=== PATIENT | female | born 1980 | race Caucasian/White ===

== ENCOUNTER 2017-12-06 18:41 | Emergency (ER) | payer BC, MEDICAID ==
[~2017-12-06] VITALS: Ht 177.8 cm; Wt 54.5 kg
[~2017-12-06 18:41] MED LIST: NO HOME MEDS
[2017-12-06] MEDS ORDERED: normal saline 1000ML IV soln IVB ONE (19:40)
[2017-12-06] MEDS ORDERED: ondansetron/PF 4mg/2ml inj IV ONE (19:40)
[2017-12-06 19:51] LABS: BASOPHILS # (AUTO) 0.1 X10'3 (0-0.2); BASOPHILS % (AUTO) 1.9 % (0-1); EOSINOPHILS % (AUTO) 0.8 % (0-6); HEMATOCRIT 40.2 % (35.0-45.0); HEMOGLOBIN 13.8 g/dl (12.0-16.0); LYMPHOCYTES # (AUTO) 1.2 X10'3 (1.1-4.8); LYMPHOCYTES % (AUTO) 21.4 % (21-51); MEAN CORPUSCULAR HEMOGLOBIN 32.1 PG (27.0-31.0); MEAN CORPUSCULAR HGB CONC 34.3 % (33.0-36.5); MEAN CORPUSCULAR VOLUME 93.5 FL (78-98); MEAN PLATELET VOLUME 9.2 FL (7.4-10.4); MONOCYTES # (AUTO) 0.5 X10'3 (0-0.9); MONOCYTES % (AUTO) 8.4 % (2-12); NEUTROPHILS # (AUTO) 3.9 X10'3 (1.8-7.7); NEUTROPHILS % (AUTO) 67.5 % (42-75); PLATELET COUNT 171 X10'3 (140-440); RED BLOOD COUNT 4.29 X10'6 (4.20-5.60); RED CELL DISTRIBUTION WIDTH 13.4 % (11.5-14.5); WHITE BLOOD COUNT 5.7 X10'3 (4.5-11.0)
[2017-12-06 20:05] LABS: ALANINE AMINOTRANSFERASE 24 U/L (12-78); ALBUMIN 3.9 G/DL (3.4-5.0); ALBUMIN/GLOBULIN RATIO 1.3 (1.1-1.5); ALKALINE PHOSPHATASE 36 IU/L (46-116); ANION GAP 6 (8-16); ASPARTATE AMINO TRANSFERASE 12 U/L (10-37); BILIRUBIN,TOTAL 0.2 MG/DL (0.1-1.0); BLOOD UREA NITROGEN 13 MG/DL (7-18); BUN/CREATININE RATIO 16.3 (6.6-38.0); CALCIUM 8.7 MG/DL (8.5-10.1); CHLORIDE 108 MMOL/L (99-107); ETHANOL 0.085 GM/DL (0.0-0.010); GLUCOSE 92 MG/DL (70-104); POTASSIUM 3.8 MMOL/L (3.5-5.1); SODIUM 143 MMOL/L (135-145); TOTAL CARBON DIOXIDE 28.6 MMOL/L (24-32); eGFR 81 ML/MIN
[2017-12-06] MEDS ORDERED: chlordiazePOXIDE 25mg capsule PO ONE (20:35)
[2017-12-06] MEDS ORDERED: gabapentin 300mg capsule PO ONE (20:40)
[2017-12-06] MEDS ORDERED: gabapentin 400mg capsule PO ONE (20:40)
[2017-12-06] MEDS ORDERED: GABA-532 PO (20:43)
[2017-12-06 20:59] VITALS: BP 111/79
== END 2017-12-06 21:03 | disposition home or self-care (01) ==
LOC: ER 18:41
DX: F10.20 Alcohol dependence, uncomplicated (principal); F31.9 Bipolar disorder, unspecified; F41.9 Anxiety disorder, unspecified; Z56.0 Unemployment, unspecified
CPT/HCPCS: 36415; 80053; 80320; 85025; 96361; 96374; 99284; J2405; J7030

== ENCOUNTER 2021-04-22 11:40 | Emergency (ER) | payer MEDICAID ==
[~2021-04-22] VITALS: Ht 177.8 cm; Wt 63.6 kg
[~2021-04-22 11:40] MED LIST changes: +GABA-532 PO
[2021-04-22 12:41] LABS: COLOR,URINE YELLOW (Yellow); GLUCOSE, URINE NEGATIVE (Neg); KETONES,URINE TRACE mg/dl (Neg); LEUKOCYTE ESTERASE ,URINE NEGATIVE (Neg); NITRITES, URINE NEGATIVE (Neg); OCCULT BLOOD,URINE NEGATIVE (Neg); PROTEIN,URINE NEGATIVE (Neg); UROBILINOGEN,URINE 0.2 E.U/dL (0.2-1.0)
[2021-04-22 12:45] LABS: UA COLLECTION TYPE CLN CATCH MIDSTREAM; URINE HCG NEGATIVE (NEG)
[2021-04-22 12:46] LABS: BACTERIA,URINE 1+ /HPF (Neg); CLARITY,URINE SLIGHTLY CLOUDY (Clear); RBC,URINE NONE SEEN /HPF (0-2); SQUAMOUS EPITHELIAL CELL,UR MANY /LPF (FEW); WBC,URINE 0-4 /HPF (0-4)
--- NOTE | 2021-04-22 12:50 | NUR ---
ZENON MOTHER [phone]
[2021-04-22 12:52] LABS: URINE AMPHETAMINE SCREEN NEGATIVE (Neg); URINE BARBITUATE SCREEN NEGATIVE (Neg); URINE BENZODIAZEPINES SCREEN NEGATIVE (Neg); URINE CANNABINOID SCREEN NEGATIVE (Neg); URINE COCAINE SCREEN NEGATIVE (Neg); URINE METHADONE SCREEN NEGATIVE (Neg); URINE OPIATE SCREEN NEGATIVE (Neg); URINE PHENCYCLIDINE SCREEN NEGATIVE (Neg)
[2021-04-22 13:05] LABS: BASOPHILS % (AUTO) 0.7 % (0-1); EOSINOPHILS % (AUTO) 0 % (0-6); HEMATOCRIT 40.7 % (35.0-45.0); LYMPHOCYTES # (AUTO) 0.9 X10'3 (1.1-4.8); MEAN CORPUSCULAR HEMOGLOBIN 31.3 PG (27.0-31.0); MEAN CORPUSCULAR HGB CONC 34.4 g/dL (33.0-36.5); MEAN CORPUSCULAR VOLUME 90.9 FL (78-98); MEAN PLATELET VOLUME 9.4 FL (7.4-10.4); MONOCYTES # (AUTO) 0.4 X10'3 (0-0.9); NEUTROPHILS # (AUTO) 4.7 X10'3 (1.8-7.7); NEUTROPHILS % (AUTO) 77.3 % (42-75); PLATELET COUNT 201 X10'3 (140-440); RED BLOOD COUNT 4.48 X10'6 (4.20-5.60); RED CELL DISTRIBUTION WIDTH 12.6 % (11.5-14.5)
[2021-04-22 13:22] LABS: ALANINE AMINOTRANSFERASE 34 U/L (12-78); ALBUMIN 4.6 G/DL (3.4-5.0); ALBUMIN/GLOBULIN RATIO 1.4 (1.1-1.5); ALKALINE PHOSPHATASE 37 IU/L (46-116); ANION GAP 12 (8-16); ASPARTATE AMINO TRANSFERASE 25 U/L (10-37); BILIRUBIN,TOTAL 0.3 MG/DL (0.1-1.0); BLOOD UREA NITROGEN 8 MG/DL (7-18); BUN/CREATININE RATIO 10.5 (6.6-38.0); CALCIUM 9.1 MG/DL (8.5-10.1); CHLORIDE 102 MMOL/L (99-107); CREATININE 0.76 MG/DL (0.40-0.90); ETHANOL 0.063 GM/DL (0.0-0.010); GLUCOSE 92 MG/DL (70-104); POTASSIUM 4.2 MMOL/L (3.5-5.1); SODIUM 138 MMOL/L (135-145); TOTAL CARBON DIOXIDE 24.3 MMOL/L (24-32); TOTAL PROTEIN 7.9 G/DL (6.4-8.2); eGFR 84 ML/MIN
[2021-04-22] MEDS ORDERED: LORazepam 1 MG tablet PO ONE (13:45)
[2021-04-22 13:50] LABS: PLATELET ESTIMATE NORMAL; TOTAL CELLS COUNTED 100
--- NOTE | 2021-04-22 14:25 | NUR ---
Patient tearful with mother and father on the phone. After a few minutes RN had patient get off because patient was getting more and more upset. Patient told RN that patient did not like the [place] at all. States it made her feel like she was going crazy. Patient states she has been dealing with Bipolar on her own for a long time and she (and her family) just can't take it anymore. She has been very depressed. RN reassured patient that she was going to get help. RN did explain the process of [facility] evaluating her 5150. Patient verbalized understanding.
--- NOTE | 2021-04-22 16:00 | NUR ---
Laney QUEZDAA, evaluating patient. Patient is calm and cooperative. Continue to monitor.
[2021-04-22] MEDS ORDERED: quetiapine 100mg tablet PO ONE (16:15)
[2021-04-22] MEDS ORDERED: LORazepam 1 MG tablet PO PRN (16:20)
[2021-04-22] MEDS: gabapentin 100mg capsule PO SCH ×2 (17:37→20:37)
--- NOTE | 2021-04-22 20:00 | NUR ---
The patient has been resting on her bed. She has been very cooperative and pleasant during the evening assessment. She currently denies thoughts of wanting to harm herself or anyone else. SHe denies psychotic symptoms. She stated that recently her mood as been "horrible" and added, "I'm constantly fighting to keep my self going...everything is a da silva" She admits to labile moods prior to coming to the ER.
--- NOTE | 2021-04-22 20:59 | NUR ---
Nurse to nurse with Leticia at [facility], [place].
--- NOTE | 2021-04-22 22:20 | NUR ---
The patient has been accepted at [facility]. [facility] will pickling grader at around 10am. Accepting MD is Dr. Lynn
--- NOTE | 2021-04-22 22:23 | NUR ---
THe patient appears to be sleeping
--- NOTE | 2021-04-22 23:45 | NUR ---
The patient is up to the bathroom briefly then right back to bed.
--- NOTE | 2021-04-23 01:14 | NUR ---
THe patient appears to be sleeping
--- NOTE | 2021-04-23 03:03 | NUR ---
The patient appears to be sleeping
--- NOTE | 2021-04-23 04:59 | NUR ---
The patient appeared to have slept well during the night
[2021-04-23 05:46] VITALS: BP 115/64
[2021-04-23] MEDS: gabapentin 100mg capsule PO SCH (08:33)
--- NOTE | 2021-04-23 10:20 | NUR ---
Pt given clothes to change into. Pt has been accepted to [facility] by Dr. Lynn. [facility] here to transport patient. Original 5150 given to [employer] driver. Pt left in stable condition and rest of belongings given to [employer]v driver.
== END 2021-04-23 10:36 ==
LOC: ER 11:41
DX: F10.129 Alcohol abuse with intoxication, unspecified (principal); Z20.822 Contact with and (suspected) exposure to COVID-19; F31.9 Bipolar disorder, unspecified; F41.9 Anxiety disorder, unspecified; F43.10 Post-traumatic stress disorder, unspecified; Z59.00 Homelessness unspecified; Z72.89 Other problems related to lifestyle; Z79.899 Other long term (current) drug therapy; Y90.8 Blood alcohol level of 240 mg/100 ml or more
CPT/HCPCS: 36415; 80053; 80305; 80320; 81001; 81025; 85007; 85025; 87635; 99285; C9803

== ENCOUNTER 2022-05-31 16:46 | Emergency (ER) | payer BC, MEDICAID ==
[~2022-05-31] VITALS: Ht 175.3 cm; Wt 63.6 kg
[2022-05-31 17:22] VITALS: BP 133/82
[2022-05-31] MEDS ORDERED: aripiprazole 5mg tablet PO STA (20:02)
[2022-05-31] MEDS ORDERED: ARIP10TA15 PO (20:08)
[2022-05-31] MEDS ORDERED: aripiprazole 400mg suspension ER syringe IM ONE (20:30)
== END 2022-05-31 20:44 | disposition home or self-care (01) ==
LOC: ER 16:47
DX: F20.9 Schizophrenia, unspecified (principal); F10.10 Alcohol abuse, uncomplicated; F41.9 Anxiety disorder, unspecified; F31.9 Bipolar disorder, unspecified; Z56.0 Unemployment, unspecified; Z79.899 Other long term (current) drug therapy; Y90.9 Presence of alcohol in blood, level not specified
CPT/HCPCS: 96372; 99283

== ENCOUNTER 2024-08-25 07:33 | Inpatient (IN) | payer BC, MEDICAID ==
[~2024-08-25] VITALS: Ht 175.3 cm; Wt 64.5 kg
[~2024-08-25 07:33] MED LIST changes: +ARIP10TA15 PO
--- NOTE | 2024-08-25 08:25 | Physician Documentation ---
History of Present Illness ~ Chief Complaint: Mental Health Eval Stated Complaint: PSYCH/ETOH Time Seen by MD: 07:55 OK to notify your PCP?: Yes Primary Medical Doctor: dr. espino Source: patient, RN/MD, RN notes reviewed, old records Mode of Arrival: POV Exam Limitations: no limitations HPI Patient comes into the ER stating that she was drinking earlier today. She drinks four bottles of wine a day. She has been off her psych medications for over a year. She was going into genetic research as to why she does not metabolize poisons in the environment both political and pharmaceutical. Additionally the patient states the cardiac scans are driving up the real estate market. Her has been boarded for trunk because he is a graphic design teacher and now he lost his job. She states they can not afford a house they live up in [place] she is tearful and here for evaluation and care. Medication Reconciliation Allergies: Coded Allergies: No Known Allergies (Unverified , 08/25/24) Discontinued Medications Aripiprazole (Aripiprazole), 0.5 TAB PO DAILY, (Reported) Discontinued Reason: patient no longer taking Aripiprazole* (Abilify*), 20 MG PO DAILY Discontinued Reason: patient no longer taking Gabapentin (Gabapentin), 1 CAP PO DIRECTED Discontinued Reason: patient no longer taking Home Med List (No Home Medications), (Reported) Discontinued Reason: patient no longer taking Past Medical History Past Medical History: Anxiety, Bipolar, Depression Past Surgical History: noncontributory Alcohol Use: Abuse Drug Use: none Lives with: Family Lives In: Home Occupation: unemployed Review of Systems All Other Systems at this time: Reviewed and Negative Physical Exam Vital Signs: RN Vital Signs have been reviewed: Yes, Temperature: 98.2, Source: Temporal, Heart Rate: 90, Respiratory Rate: 16, BP: 106/70, Pulse Oximetry: 95, Weight: 66.700 Oxygen Flow Rate: 0 Physical Exam General: The patient is well developed, well nourished, nontoxic appearing and is in no acute distress. Skin: [place], warm and dry with no rashes. HEENT: Head was normocephalic and atraumatic. Eyes - pupils equal, round, reactive to light and accommodation. Extraocular movements were intact. Conjunctivae were nonicteric. The mouth and oropharynx were clear with moist mucous membranes. Neck: Supple and nontender. There was no jugular venous distention, lymphadenopathy, thyromegaly or masses. Chest: Clear to auscultation bilaterally without wheezes, rales or rhonchi. No accessory muscle use. No dullness to percussion. Heart: Rate regular and rhythmic. S1, S2. No murmurs. Palpation of the chest wall was normal. No rubs or thrills. Abdomen: Soft, nontender and nondistended. Positive bowel sounds. No guarding or rebound. No hepatosplenomegaly or palpable masses. Extremities: No cyanosis, clubbing or edema. The patient moves all extremities. Pulses were equal and symmetric. Neurologic: Motor sensory grossly intact Psychologic: The patient was oriented to person, place and time. The patient demonstrated poor judgement and insight. Patient was tearful. Flat affect but also labile at times. Positive suicidal ideation Progress Progress Note 1122: Transfer orders for [facility]: At this time there is no evidence of an emergent medical condition that would preclude (admission/transfer) to a psychiatric unit via [facility] protocol for further psychiatric, as well as medical evaluation and treatment. At this time I have no reason to believe that transfer via [facility] protocol would have serious medical compromise in the patient's health. Results/Orders Reviewed/noted all lab results: Yes Results/Orders Orders - JESSICA GOLDMAN MD Med Rec (08/25/24 08:19) 1799.11 (08/25/24 08:19) Close Observation Level (08/25/24 08:19) Covid19 Binax Poc Result Entry (08/25/24 08:19) Substance Use Navigator (08/25/24 08:19) Doxepin Capsule (Sinequan Capsule) (08/25/24 21:00) Lurasidone Tablet (Latuda Tablet) (08/25/24 13:31) Completed Orders - JESSICA GOLDMAN MD Cbc/Diff (08/25/24 08:19) Hcg, Ur Ql (08/25/24 08:19) Drug Screen, Urine (08/25/24 08:19) Ethanol (08/25/24 08:19) TSH (08/25/24 08:19) BMP (08/25/24 08:19) Regular Diet (08/25/24 Lunch) Ua With Microscopic (08/25/24 10:26) Chlordiazepoxide Capsule (Librium Capsul (08/25/24 13:00) Vital Signs 08/25/24 08/25/24 08/25/24 08/25/24 07:36 08:49 19:40 19:56 Temp 98.2 98.1 Pulse 90 70 Resp 16 18 16 16 B/P (MAP) 106/70 109/74 (86) Pulse Ox 95 98 O2 Flow Rate 0 0 Laboratory Tests Test 08/25/24 08:30 08/25/24 09:55 08/25/24 10:26 SARS-CoV-2 Antigen (Rapid) Negative White Blood Count 5.2 Red Blood Count 3.78 L Hemoglobin 11.8 L Hematocrit 35.6 Mean Corpuscular Volume 94.2 Mean Corpuscular Hemoglobin 31.3 H Mean Corpuscular Hemoglobin Concent 33.2 Red Cell Distribution Width 14.0 Platelet Count 179 Mean Platelet Volume 8.8 Neutrophils (%) (Auto) 68.1 Lymphocytes (%) (Auto) 21.1 Monocytes (%) (Auto) 7.8 Eosinophils (%) (Auto) 1.9 Basophils (%) (Auto) 1.1 H Neutrophils # (Auto) 3.6 Lymphocytes # (Auto) 1.1 Monocytes # (Auto) 0.4 Eosinophils # (Auto) 0.1 Basophils # (Auto) 0.1 CBC Comment Sodium Level 142 Potassium Level 4.4 Chloride Level 108 H Carbon Dioxide Level 28.8 Anion Gap 5 L Blood Urea Nitrogen 12 Creatinine 0.76 Estimated GFR/1.73 m2 83 BUN/Creatinine Ratio 15.8 Glucose Level 84 Calcium Level 8.3 L Albumin 3.3 L Thyroid Stimulating Hormone (TSH) 1.51 Chemistry Comments Ethyl Alcohol Level 88 H Urine Specimen Description Cln catch midstream Urine Color Yellow Urine Clarity Clear Urine pH 6.5 Urine Specific [place] <=1.005 Urine Protein Negative Urine Glucose (UA) Negative Urine Ketones Negative Urine Occult Blood Moderate H Urine Nitrite Negative Urine Bilirubin Negative Urine Urobilinogen 0.2 Urine Leukocyte Esterase Negative Urine RBC 20-50 Urine WBC None seen Urine Squamous Epithelial Cells Few Urine Transitional Epithelial Cells Few Urine Bacteria Few Volume Urine Centrifuged 10 ml Urine HCG, Qualitative Negative Urine Comment Urine Opiates Screen Negative Urine Methadone Screen Negative Urine Fentanyl Screen Negative Urine Barbiturates Screen Negative Urine Phencyclidine Screen Negative Urine Amphetamines Screen Negative Urine Benzodiazepines Screen Positive H Urine Cocaine Screen Negative Urine Cannabinoids Screen Negative Drug Screen Comment Re-Evaluation Re-Evaluation : Re-Evaluation: Improved Progress Patient was seen and examined. Patient is given reassurance. Patient's laboratory work was obtained and was reassuring. Patient is medically cleared for mental health treatment. Medical Decision Making Additional info obtained from: old records Differential Dx:Considerations: Include: Alcohol abuse, Anxiety, Bipolar disorder, Conversion disorder, Depression, Encephaloathy, Homicidal, Panic disorder, Personality disorder, Schizophrenia, Substance abuse, Suicidal, Other Departure Disposition: 01 HOME / SELF CARE / HOMELESS Impression: Primary Impression: Suicidal ideation Referrals: NO PRIMARY CARE PROVIDER (PCP) Education Educated: Patient Educated regarding: diagnosis, need for follow up, other Signature Scribe Signature: No scribed Attestation: The note accurately reflects work and decisions made by me.Jessica Goldman MD 08/25/24 08:25 JESSICA GOLDMAN MD Aug 25, 2024 08:25
[2024-08-25] MEDS ORDERED: ARIP5TAB53 PO (08:54)
[2024-08-25 10:01] LABS: BASOPHILS # (AUTO) 0.1 X10'3 (0-0.2); BASOPHILS % (AUTO) 1.1 % (0-1); EOSINOPHILS # (AUTO) 0.1 X10'3 (0-0.9); EOSINOPHILS % (AUTO) 1.9 % (0-6); HEMATOCRIT 35.6 % (35.0-45.0); HEMOGLOBIN 11.8 g/dl (12.0-16.0); LYMPHOCYTES # (AUTO) 1.1 X10'3 (1.1-4.8); LYMPHOCYTES % (AUTO) 21.1 % (21-51); MEAN CORPUSCULAR HEMOGLOBIN 31.3 PG (27.0-31.0); MEAN CORPUSCULAR HGB CONC 33.2 g/dL (33.0-36.5); MEAN CORPUSCULAR VOLUME 94.2 FL (78-98); MEAN PLATELET VOLUME 8.8 FL (7.4-10.4); MONOCYTES # (AUTO) 0.4 X10'3 (0-0.9); MONOCYTES % (AUTO) 7.8 % (2-12); NEUTROPHILS # (AUTO) 3.6 X10'3 (1.8-7.7); NEUTROPHILS % (AUTO) 68.1 % (42-75); PLATELET COUNT 179 X10'3 (140-440); RED BLOOD COUNT 3.78 X10'6 (4.20-5.60); WHITE BLOOD COUNT 5.2 X10'3 (4.5-11.0)
[2024-08-25 10:25] LABS: ALBUMIN 3.3 G/DL (3.4-5.0); ANION GAP 5 (8-16); BLOOD UREA NITROGEN 12 MG/DL (7-18); BUN/CREATININE RATIO 15.8 (10.0-20.0); CALCIUM 8.3 MG/DL (8.5-10.1); CHLORIDE 108 MMOL/L (99-107); CREATININE 0.76 MG/DL (0.40-0.90); ETHANOL 88 MG/DL (<10); GLUCOSE 84 MG/DL (70-104); POTASSIUM 4.4 MMOL/L (3.5-5.1); SODIUM 142 MMOL/L (135-145); THYROID STIMULATING HORMONE 1.51 ulU/ml (0.34-4.50); TOTAL CARBON DIOXIDE 28.8 MMOL/L (24-32); eCRCL 99 ML/MIN; eGFR 83 ML/MIN
[2024-08-25 10:41] LABS: BILIRUBIN,URINE NEGATIVE (Neg); CLARITY,URINE CLEAR (Clear); COLOR,URINE YELLOW (Yellow); GLUCOSE, URINE NEGATIVE (Neg); KETONES,URINE NEGATIVE (Neg); LEUKOCYTE ESTERASE ,URINE NEGATIVE (Neg); NITRITES, URINE NEGATIVE (Neg); OCCULT BLOOD,URINE MODERATE (Neg); PH,URINE 6.5 (4.8-8.0); PROTEIN,URINE NEGATIVE (Neg); URINE HCG NEGATIVE (NEG); UROBILINOGEN,URINE 0.2 E.U/dL (0.2-1.0)
[2024-08-25 10:44] LABS: UA COLLECTION TYPE CLN CATCH MIDSTREAM
[2024-08-25 10:50] LABS: BACTERIA,URINE FEW /HPF (Neg); RBC,URINE 20-50 /HPF (0-2); SQUAMOUS EPITHELIAL CELL,UR FEW /LPF (FEW); TRANSITIONAL EPI CELLS,URINE FEW /HPF; WBC,URINE NONE SEEN /HPF (0-4)
[2024-08-25 10:54] LABS: URINE AMPHETAMINE SCREEN NEGATIVE (Neg); URINE BARBITUATE SCREEN NEGATIVE (Neg); URINE BENZODIAZEPINES SCREEN POSITIVE (Neg); URINE CANNABINOID SCREEN NEGATIVE (Neg); URINE COCAINE SCREEN NEGATIVE (Neg); URINE METHADONE SCREEN NEGATIVE (Neg); URINE OPIATE SCREEN NEGATIVE (Neg); URINE PHENCYCLIDINE SCREEN NEGATIVE (Neg)
[2024-08-25] MEDS ORDERED: lurasidone 60mg tablet PO SCH (13:00)
[2024-08-25] MEDS: chlordiazePOXIDE 25mg capsule PO ONE (13:23)
[2024-08-25] MEDS ORDERED: lurasidone 20mg tablet PO SCH (13:26)
[2024-08-25] MEDS: lurasidone 20mg tablet PO SCH (13:46)
[2024-08-25] MEDS ORDERED: NICOTINE POLACRILEX 2 MG LOZENGE BC PRN (21:35)
[2024-08-25] MEDS ORDERED: mag hydrox/Alum hydrox/simeth 30ml oral suspension PO PRN (21:35)
[2024-08-25] MEDS ORDERED: diphenhydrAMINE 25mg capsule PO PRN (21:35)
[2024-08-25] MEDS ORDERED: acetaminophen 325mg tablet PO PRN ×2 (21:35)
[2024-08-25] MEDS ORDERED: magnesium hydroxide 30ml (MOM) UD suspension PO PRN (21:35)
[2024-08-25 22:02] VITALS: RESP 16; O2SAT 98
[2024-08-25] MEDS: LORazepam 1 MG tablet PO PRN (23:03)
[2024-08-25] MEDS: doxepin 10mg capsule PO SCH (23:03)
[2024-08-25] MEDS: traZODone 50mg tablet PO PRN (23:03)
[2024-08-26] MEDS ORDERED: LURA20TA8 PO (01:30)
[2024-08-26] MEDS ORDERED: DOXE10CA3 PO (01:32)
[2024-08-26] MEDS ORDERED: LORA-269 PO (01:32)
[2024-08-26 07:00] VITALS: RESP 16; O2SAT 100
[2024-08-26] MEDS ORDERED: lurasidone 20mg tablet PO SCH (07:30)
[2024-08-26] MEDS: nicotine 21mg patch - 24 hr TD SCH (07:40)
[2024-08-26 08:00] VITALS: BP 98/56; PULSE 47; RESP 16; TEMP 98.1; O2SAT 100
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
[2024-08-26 14:28] LABS: HEMOGLOBIN A1C 4.7 % (4.5-6.2)
[2024-08-26 14:33] LABS: CHOL/HDL RATIO 2.2 (0.00-4.99); CHOLESTEROL 231 MG/DL (0-200); HDL CHOLESTEROL 106 MG/DL (35-60); LDL CHOLESTEROL 95 MG/DL (50-100); TRIGLYCERIDES 102 MG/DL (20-135)
[2024-08-26 18:34] VITALS: RESP 16
[2024-08-26 19:34] VITALS: BP 111/59; PULSE 61; RESP 16; TEMP 97.8; O2SAT 98
--- NOTE | 2024-08-26 19:41 | HISTORY AND PHYSICAL-Residence ---
History & Physical Providers to CC Resident Creating Document: DHAVAL CASTREJON, RES ~ History of Present Illness Reason for Admit\Complaint: Depression, alcohol use disorder. History of Present Illness 44 years old female patient came to the hospital with chief complaint binge drinking. In the emergency department it was evidenced that the patient is in danger to self after showing signs of anxiety, tearfulness, reports that she has been drinking multiple bottles of wine daily for years. Trans to remove with pressure speech. The patient is positive for benzodiazepine and alcohol. The patient is currently not in acute distress, denies any chest pain, shortness of breath, palpitations, urinary or intestinal symptoms. Stating that she was admitted to the hospital because of binge drinking alcohol and depression. Allergies: Coded Allergies: No Known Allergies (Unverified , 08/25/24) Home Medications Home Medications Active Reported Ativan (Lorazepam) 1 Mg Tablet 1 Tab PO Q6H PRN Doxepin HCl 10 Mg Capsule 1 Cap PO HS Latuda (Lurasidone HCl) 20 Mg Tablet 1 Tab PO DAILY Past Medical History Past Medical History Alcohol use disorder. Depression. Past Surgical History Surgical History Comment None Past Social History Smoking: Quit greater than 1 year Alcohol Use: Abuse Drug Use: Marijuana Lives with: Family Lives In: Home Occupation: unemployed ROS All Other Systems: Reviewed and Negative Exam Vitals: Vital Signs Date Time Temp Pulse Resp B/P (MAP) Pulse Ox O2 Delivery O2 Flow Rate FiO2 08/26/24 19:34 97.8 61 16 111/59 (76) 98 Room Air 08/25/24 19:40 0 Physical exam: General: Well alert, well oriented, not confused, not agitated, not in acute distress, well cooperated during the physical. HEENT: Conjunctive are pink, sclerae clear, no icterus, pupil is equal in both sides, reactive to light, no ear discharge, no pharyngeal erythema or an edema. Neck: Supple, no JVD, no lymphadenopathy and thyromegaly. Chest: Equal air entry on both lungs, no additional sounds no rhonchi no wheezing at the moment. Cardiovascular: S1-S2 regular sinus rhythm and, regular rate, no gallops, no rubs, no murmurs Abdomen: No visible peristalsis, Bowel sounds present on auscultation, soft, nontender, no guarding, no rigidity Extremities: No obvious deformities, no pitting edema bilaterally, capillary refill intact, peripheral pulsations are intact on both sides Central Nervous System: No focal neurological deficits, no motor or sensory weakness in all 4 extremities, could move all 4 extremities, 2+ deep tendon reflexes, negative Babinski. Musculoskeletal: No joint swelling, deformities, inflammations, and no scoliosis and back tenderness Skin: Warm and dry. Diagnostic Data Last Recorded Lab Results: 08/25/24 0955 08/25/24 0955 Additional Plan Assessment and plan: 44 years old female patient came to the hospital with signs of anxiety, depression. Schizoaffective disorder: Bipolar affective disorder: Alcohol abuse: Continue management as per psychiatrist. Disposition: Hospitalist team will continue to follow the patient. Continue management as per psychiatrist. Dhaval Hobbs Internal Medicine Resident [facility] Date of Service: Aug 26, 2024 Billing Provider: LINETTE RESENDIZ MD Common Visit Codes: [id number] INP/OBS CARE (HIGH) DHAVAL CASTREJON, RES Aug 26, 2024 19:41 LINETTE RESENDIZ MD Aug 26, 2024 21:48
[2024-08-26] MEDS: mirtazapine 15mg tablet PO SCH (19:51)
[2024-08-27 07:00] VITALS: RESP 15; O2SAT 100
[2024-08-27 08:00] VITALS: BP 111/56; PULSE 60; RESP 15; TEMP 98.4; O2SAT 100
--- NOTE | 2024-08-27 14:47 | PROGRESS NOTE ---
Progress Note Dictate Providers to CC ~ Central Line/PICC still needed: N\\A Antibiotic Ordered?: No MRSA Education MRSA Education Provided to pt: No Objective Vitals Vital Signs Date Time Temp Pulse Resp B/P (MAP) Pulse Ox O2 Delivery O2 Flow Rate FiO2 08/27/24 08:00 98.4 60 15 111/56 (74) 100 Room Air 08/25/24 19:40 0 Lab Results: 08/25/24 0955 08/25/24 0955 Problem\\Assessment\\Plan Problems/Diagnosis: (1) Schizoaffective disorder (2) Bipolar affective disorder (3) Alcohol abuse Psychiatrist's Progress Note Date of Service: Aug 27, 2024 Notes CHART REVIEW Michelle is a 44-year-old female placed on a 1799 by [facility] ED for danger to self after presenting to the ED showing signs of anxiety, tearfulness, reports she has been drinking multiple bottles of wine daily for years, tends to ramble with pressured speech. Report at [facility] ED is positive for benzodiazepine and alcohol. Cristobal reports awareness of self, surrounding, hospital location in the approximate date and time. And reports she is a resident of [facility] residing with her until one week ago when she moved to [facility] to live with her parents; Cristobal reports her is unable to "deal with me." Reports history of alcohol abuse, bipolar disorder, schizophrenia and PTSD. Last psychiatric hospital [facility] admission by self report was asked [facility] approximately one year ago. Liliane reports exhibiting impulse behaviors with recent examples that includes shaving off her hair in remains restless, pacing while in the ED. ASSESSMENT The patient was interviewed in observation room. The patient was actively resting in bed with eyes open. The patient endorses "I feel completely drugged out." That is what happens I cant function on them." "I am not on hardly anything and I feel completely drugged out." "It is making me worse staying in here." "i need to get home and get back to AA. Denies SI. Denies HI. Denies AVH. The patient is stable no acute distress noted. The patient is depressed, anxious (about being in here), and engaged during session. The patient seems to be minimizing her symptoms. Per staff report the patient is medication compliant. Per staff report no abnormal behaviors noted.Will continue daily assessment and adjusting treatment as needed. Closely monitor behavior and response to medication during hospitalization. Results Of any Diagn. Testing REVIEW OF LABS WBC 5.2 COVID NEGATIVE RBC 3.78 HEMOGLOBIN 11.8 HEMATOCRIT 35.6 PLATELETS 179 SODIUM 142 POTASSIUM 4.4 CHLORIDE 108 ANION GAP5 BUN 12 CREATININE 0.76 GLUCOSE 84 CALCIUM 8.3 ALBUMIN 3.3 TSH 1.51 ETHYL ALCOHOL LEVEL 88 URINALYSIS NEGATIVE URINE TOX SCREEN POSITIVE FOR BENZODIAZEPINES Appearnace: Other (TALL AVERAGE WEIGHT FEMALE.BALD HEAD.WEARING GREEN SCRUBS.) Speech: Other (CIRCUMSTANTIAL) Eye Contact: Other (INTERMITTENT) Motor Activity: Normal Affect: Constricted Mood: Depressed, Irritable Orientation Impairment: None Memory Impairment: None Attention: Normal Hallucinations: None Other: None Suicidality: None Homicidality: None Delusions: None Behavior: Agitated Insight: Poor Judgment: Poor Treatment Increase LATUDA 40MG PO DAILY TRAZODONE 50 MG P.O. Q.6 PRN ATIVAN 1 MG P.O. Q.6 PRN BENADRYL 50 MG P.O. Q.6 PRN THORAZINE 50 MG P.O. Q.6 PRN REMERON 7.5MG PO QHS Monitoring by Staff, Milieu, Group, and Individual counseling as needed -- According to the [place] Suicide Assessment the above named patient is on Q15 MINUTE CHECKS. [id number]-The patient does not have a good safety plan for discharge at this time. We are still titrating medications to an effective dose while maintaining a therapeutic environment to prevent decompensation and readmission. Total time spent 60 minutes on REVIEW OF Clinical notes [X ] RN notes [X] PCT documentation [X] SW notes Labs [ X] Medications [X] Care trends/care activity [X] Vitals [X] DISCUSSION WITH reducing system operator [X] Staff SW Treatment Team [X] Discharge UNSURE AT THIS TIME. DISCHARGE HOMELESS ONCE STABLE. CODING VISIT-PSYCHIATRY Date of Service: Aug 27, 2024 Billing Provider: ZAHIDA MONROE APRN Psych Common Visit Codes: [id number] INP/OBS CARE(Mod) ZAHIDA MONROE APRN Aug 27, 2024 14:47
[2024-08-27] MEDS ORDERED: lurasidone 20mg tablet PO SCH (17:00)
[2024-08-27] MEDS: lurasidone 20mg tablet PO SCH (17:19)
[2024-08-27 19:00] VITALS: RESP 16; O2SAT 99
[2024-08-27 20:48] VITALS: RESP 16; O2SAT 99
[2024-08-27 20:53] VITALS: BP 104/55; PULSE 66; RESP 16; TEMP 96.6; O2SAT 99
[2024-08-28 07:00] VITALS: RESP 16; O2SAT 98
[2024-08-28 08:00] VITALS: BP 91/51; PULSE 48; RESP 16; TEMP 97.5; O2SAT 98
--- NOTE | 2024-08-28 09:50 | DISCHARGE SUMMARY ---
Discharge Summary Providers to ~ Discharge Summary Hospital Course DATE OF ADMISSION: DATE OF DISCHARGE: Discharge Summary: CHART REVIEW Patient actively seen and examined on day of discharge 08/28/2024, by myself, LYNN Stallworth. The patient is interviewed in observation room. The patient endorses "I am doing Good." Denies SI. Denies HI. Denies AVH. Michelle was able to formulate a safety plan which includes going to the emergency room if symptoms return or worsen. Call [phone] or [phone] for immediate assistance if necessary. During his hospital stay, Michelle receive multidisciplinary treatment she adhered to his medication regimen and has been pleasant and cooperative. She denies any suicidal ideation (SI), homicidal ideation (HI), auditory/visual hallucination (HI). Staff has reported no behavioral issues, and the patient has been sleeping well, adequate food intake, with no mood or behavioral changes noted. The decision to discharge Michelle was made in consensus with the treatment team, including the hospice social worker, community relations officer, and smelter charger on duty. MENTAL STATUS EXAM APPEARANCE: APPROPRIATELY. DRESSED IN STREET CLOTHING. SPEECH: CIRCUMSTANTIAL EYE CONTACT: INTERMITTENT AFFECT: CONSTRICTED MOOD: "I AM DOING GOOD" ORIENTATION IMPAIRMENT: NONE MEMORY IMPAIRMENT: NONE ATTENTION: NORMAL HALLUCINATIONS: NONE SUICIDALITY: NONE HOMICIDALITY: NONE DELUSIONS: NONE BEHAVIOR: COOPERATIVE, PLEASANT JUDGMENT: FAIR, POOR INSIGHT: FAIR Continue Current Inpatient Psychotropic Regimen @ home Follow-Up with Psychiatric Provider Safety Plan Discussed DISCHARGE CONDITION: Her readiness for discharge is supported by his stable mental status, adherence to treatment, and proactive approach to managing his mental health. Denies SI. Denies HI. Denies A/V/H. The patient has been informed to continue follow-up care to ensure ongoing support and monitoring. Patient discharged to home. *Problems/Diagnosis: (1) Schizoaffective disorder Status: Acute (2) Bipolar affective disorder Status: Acute (3) Alcohol abuse Status: Acute CODING VISIT-PSYCHIATRY Date of Service: Aug 28, 2024 Billing Provider: ZAHIDA MONROE APRN Psych Common Visit Codes: [id number]/[id number] DISCH DAY >30min ZAHIDA MONROE APRN Aug 28, 2024 09:48
--- NOTE | 2024-08-28 11:08 | PROGRESS NOTE ---
Progress Note Dictate Providers to CC ~ Central Line/PICC still needed: N\\A Antibiotic Ordered?: No MRSA Education MRSA Education Provided to pt: No Objective Vitals Vital Signs Date Time Temp Pulse Resp B/P (MAP) Pulse Ox O2 Delivery O2 Flow Rate FiO2 08/28/24 08:00 97.5 48 16 91/51 (64) 98 Room Air 08/28/24 07:00 0.0 Lab Results: 08/25/24 0955 08/25/24 0955 Problem\\Assessment\\Plan Problems/Diagnosis: (1) Schizoaffective disorder (2) Bipolar affective disorder (3) Alcohol abuse Psychiatrist's Progress Note Date of Service: Aug 28, 2024 Notes CHART REVIEW Michelle is a 44-year-old female placed on a 1799 by S [facility] ED for danger to self after presenting to the ED showing signs of anxiety, tearfulness, reports she has been drinking multiple bottles of wine daily for years, tends to ramble with pressured speech. Report at [facility] ED is positive for benzodiazepine and alcohol. Cristobal reports awareness of self, surrounding, hospital location in the approximate date and time. And reports she is a resident of [facility] residing with her until one week ago when she moved to [facility] to live with her parents; Cristobal reports her is unable to "deal with me." Reports history of alcohol abuse, bipolar disorder, schizophrenia and PTSD. Last psychiatric hospital F admission by self report was asked [facility] approximately one year ago. Liliane reports exhibiting impulse behaviors with recent examples that includes shaving off her hair in remains restless, pacing while in the ED. ASSESSMENT The patient was interviewed in observation room. The patient was actively sitting up in bed. The patient endorses "I'm calm." " feel like there is no reason for me to stay here.' "I can go stay at AA." "Denies SI. Denies HI. Denies AVH. The patient is stable no acute distress noted. The patient is depressed, anxious (about being in here), and engaged during session. The patient seems to be minimizing her symptoms. Per staff report the patient is medication compliant. Per staff report no abnormal behaviors noted.Will continue daily assessment and adjusting treatment as needed. Closely monitor behavior and response to medication during hospitalization. I spoke with both parents of Michelle with Michelle consent and they are not willing to allow Michelle back until she is more stable. Stephane Velasquez' mother expressed that the patient was on Abilify injection in the past and it worked well. The patient agreed to the Abilify injection. Results Of any Diagn. Testing REVIEW OF LABS WBC 5.2 COVID NEGATIVE RBC 3.78 HEMOGLOBIN 11.8 HEMATOCRIT 35.6 PLATELETS 179 SODIUM 142 POTASSIUM 4.4 CHLORIDE 108 ANION GAP5 BUN 12 CREATININE 0.76 GLUCOSE 84 CALCIUM 8.3 ALBUMIN 3.3 TSH 1.51 ETHYL ALCOHOL LEVEL 88 URINALYSIS NEGATIVE URINE TOX SCREEN POSITIVE FOR BENZODIAZEPINES Appearnace: Other (APPROPRIATE. TALL AVERAGE WEIGHT FEMALE.BALD HEAD.WEARING GREEN SCRUBS.) Speech: Other (CIRCUMSTANTIAL) Eye Contact: Avoidant Motor Activity: Normal Affect: Labile Mood: Depressed Orientation Impairment: None Memory Impairment: None Attention: Normal Hallucinations: None Other: None Suicidality: None Homicidality: None Delusions: None Behavior: Agitated Insight: Poor Judgment: Poor Treatment Discontinue LATUDA 40MG PO DAILY ABILIFY 960MG IM X1-GIVEN ON 08/28/2024 TRAZODONE 50 MG P.O. Q.6 PRN ATIVAN 1 MG P.O. Q.6 PRN BENADRYL 50 MG P.O. Q.6 PRN THORAZINE 50 MG P.O. Q.6 PRN REMERON 7.5MG PO QHS Monitoring by Staff, Milieu, Group, and Individual counseling as needed -- According to the [place] Suicide Assessment the above named patient is on Q15 MINUTE CHECKS. [id number]-The patient does not have a good safety plan for discharge at this time. We are still titrating medications to an effective dose while maintaining a therapeutic environment to prevent decompensation and readmission. Total time spent 50 minutes on REVIEW OF Clinical notes [X ] RN notes [X] PCT documentation [X] SW notes Labs [ X] Medications [X] Care trends/care activity [X] Vitals [X] DISCUSSION WITH beauty operator apprentice [X] Staff SW Treatment Team [X] Discharge UNSURE AT THIS TIME. DISCHARGE HOMELESS ONCE STABLE. CODING VISIT-PSYCHIATRY Date of Service: Aug 28, 2024 Billing Provider: ZAHIDA MONROE APRN Psych Common Visit Codes: [id number] INP/OBS CARE(Mod) ZAHIDA MONROE APRN Aug 28, 2024 11:08
[2024-08-28] MEDS: ARIPIPRAZOLE 960 MG/3.2 ML IM ONE (13:07)
--- NOTE | 2024-08-28 18:14 | PROGRESS NOTE ---
Daily Progress Note Providers to CC ~ Antibiotic Timeout Antibiotic Ordered?: No Subjective Patient was seen in her room she looked very depressed she cooperated during physical examination. she is Hydrating and not missing her food Objective Vital Signs Date Time Temp Pulse Resp B/P (MAP) Pulse Ox O2 Delivery O2 Flow Rate FiO2 08/28/24 08:00 97.5 48 16 91/51 (64) 98 Room Air 08/28/24 07:00 0.0 Result Diagram: 08/25/24 0908/25/24 0955 General-patient not in any acute distress, awake , age-appropriate, appeared depressed HEENT-atraumatic normocephalic, neck supple without elevated JVD, no thyromegaly or carotid bruit. No lymphadenopathy bilaterally. Eyes-no icterus or pallor seen in eyes Chest-clear to auscultation bilaterally, breathing nonlabored no tachypnea, no wheezing, no crepitation, no crackles. Heart-S1-S2 normal, regular heart rate no murmur Abdomen bowel sounds positive on auscultation, soft nondistended nontender no guarding, no rigidity Skin no active skin rash Neurology-grossly intact, nonfocal awake cooperated during physical examination Extremity- no pedal edema able to move all 4 extremities Problem\Assessment\Plan 44 years old female patient came to the hospital with signs of anxiety, depression. Schizoaffective disorder: Bipolar affective disorder: Alcohol abuse: Continue management as per psychiatrist. Disposition: Hospitalist team will continue to follow the patient. Continue management as per psychiatrist. Date of Service: Aug 28, 2024 Billing Provider: DANDRE RODRIGUES MD Common Visit Codes: [id number] INP/OBS CARE(LOW) DANDRE RODRIGUES MD Aug 28, 2024 18:14
[2024-08-28 19:00] VITALS: RESP 15; O2SAT 100
[2024-08-28 20:00] VITALS: BP 105/65; PULSE 70; RESP 15; TEMP 97; O2SAT 100
[2024-08-29 07:00] VITALS: RESP 16; O2SAT 97
[2024-08-29 08:00] VITALS: BP 91/47; PULSE 60; RESP 16; TEMP 97.4; O2SAT 97
--- NOTE | 2024-08-29 14:51 | PROGRESS NOTE ---
Progress Note Dictate Providers to CC ~ Central Line/PICC still needed: N\\A Antibiotic Ordered?: No MRSA Education MRSA Education Provided to pt: No Objective Vitals Vital Signs Date Time Temp Pulse Resp B/P (MAP) Pulse Ox O2 Delivery O2 Flow Rate FiO2 08/29/24 08:00 97.4 60 16 91/47 (62) 97 08/29/24 07:00 Room Air 0.0 Lab Results: 08/25/24 0955 08/25/24 0955 Problem\\Assessment\\Plan Problems/Diagnosis: (1) Schizoaffective disorder (2) Bipolar affective disorder (3) Alcohol abuse Psychiatrist's Progress Note Date of Service: Aug 29, 2024 Notes CHART REVIEW Michelle is a 44-year-old female placed on a 1799 by S [facility] ED for danger to self after presenting to the ED showing signs of anxiety, tearfulness, reports she has been drinking multiple bottles of wine daily for years, tends to ramble with pressured speech. Report at [facility] ED is positive for benzodiazepine and alcohol. Cristobal reports awareness of self, surrounding, hospital location in the approximate date and time. And reports she is a resident of [facility] residing with her until one week ago when she moved to [facility] to live with her parents; Cristobal reports her is unable to "deal with me." Reports history of alcohol abuse, bipolar disorder, schizophrenia and PTSD. Last psychiatric hospital [facility] admission by self report was asked [facility] approximately one year ago. Liliane reports exhibiting impulse behaviors with recent examples that includes shaving off her hair in remains restless, pacing while in the ED. ASSESSMENT The patient was interviewed in observation room. The patient was actively walking in hallway. The patient endorses "I don't want to talk; I just want to go home." Denies SI. Denies HI. Denies AVH. The patient is stable no acute distress noted. The patient is depressed, irritable, and uncooperative. Per staff report the patient is medication compliant. Per staff report no abnormal behaviors noted.Will continue daily assessment and adjusting treatment as needed. Closely monitor behavior and response to medication during hospitalization. Results Of any Diagn. Testing REVIEW OF LABS WBC 5.2 COVID NEGATIVE RBC 3.78 HEMOGLOBIN 11.8 HEMATOCRIT 35.6 PLATELETS 179 SODIUM 142 POTASSIUM 4.4 CHLORIDE 108 ANION GAP5 BUN 12 CREATININE 0.76 GLUCOSE 84 CALCIUM 8.3 ALBUMIN 3.3 TSH 1.51 ETHYL ALCOHOL LEVEL 88 URINALYSIS NEGATIVE URINE TOX SCREEN POSITIVE FOR BENZODIAZEPINES Affect: Labile Mood: Irritable Behavior: Agitated, Other (UNCOOPERATIVE) Insight: Poor Judgment: Poor Treatment ABILIFY 15 MG P.O. Q.H.S. X 14 DAYS ABILIFY 960MG IM X1-GIVEN ON 08/28/2024 TRAZODONE 50 MG P.O. Q.6 PRN ATIVAN 1 MG P.O. Q.6 PRN BENADRYL 50 MG P.O. Q.6 PRN THORAZINE 50 MG P.O. Q.6 PRN REMERON 7.5MG PO QHS Monitoring by Staff, Milieu, Group, and Individual counseling as needed -- According to the [place] Suicide Assessment the above named patient is on Q15 MINUTE CHECKS. [id number]-The patient does not have a good safety plan for discharge at this time. We are still titrating medications to an effective dose while maintaining a therapeutic environment to prevent decompensation and readmission. Total time spent 40 minutes on REVIEW OF Clinical notes [X ] RN notes [X] PCT documentation [X] SW notes Labs [ X] Medications [X] Care trends/care activity [X] Vitals [X] DISCUSSION WITH director of elementary education [X] Staff SW Treatment Team [X] Discharge UNSURE AT THIS TIME. DISCHARGE HOMELESS ONCE STABLE. CODING VISIT-PSYCHIATRY Date of Service: Aug 29, 2024 Billing Provider: ZAHIDA MONROE APRN Psych Common Visit Codes: [id number] INP/OBS CARE(Mod) ZAHIDA MONROE APRN Aug 29, 2024 14:51
[2024-08-29 19:00] VITALS: RESP 18; O2SAT 100
[2024-08-29 20:00] VITALS: BP 122/78; PULSE 67; RESP 18; TEMP 97.2; O2SAT 100
[2024-08-30 07:30] VITALS: BP 121/76; PULSE 56; RESP 14; TEMP 97.7; O2SAT 98
--- NOTE | 2024-08-30 11:01 | PROGRESS NOTE ---
Progress Note Dictate Providers to CC ~ Central Line/PICC still needed: N\\A Antibiotic Ordered?: No MRSA Education MRSA Education Provided to pt: No Objective Vitals Vital Signs Date Time Temp Pulse Resp B/P (MAP) Pulse Ox O2 Delivery O2 Flow Rate FiO2 08/29/24 20:00 97.2 67 18 122/78 (93) 100 Room Air 08/29/24 07:00 0.0 Problem\\Assessment\\Plan Problems/Diagnosis: (1) Schizoaffective disorder (2) Bipolar affective disorder (3) Alcohol abuse Psychiatrist's Progress Note Date of Service: Aug 30, 2024 Notes CHART REVIEW Michelle is a 44-year-old female placed on a 1799 by S [facility] ED for danger to self after presenting to the ED showing signs of anxiety, tearfulness, reports she has been drinking multiple bottles of wine daily for years, tends to ramble with pressured speech. Report at [facility] ED is positive for benzodiazepine and alcohol. Cristobal reports awareness of self, surrounding, hospital location in the approximate date and time. And reports she is a resident of [facility] residing with her until one week ago when she moved to [facility] to live with her parents; Cristobal reports her is unable to "deal with me." Reports history of alcohol abuse, bipolar disorder, schizophrenia and PTSD. Last psychiatric hospital F admission by self report was asked [facility] approximately one year ago. Liliane reports exhibiting impulse behaviors with recent examples that includes shaving off her hair in remains restless, pacing while in the ED. ASSESSMENT The patient was interviewed in observation room. The patient was actively resting in bed. The patient endorses "I will be honest the Abilify is not helping me focus and my mom wants me to do TMS.' "I am having a hard time being in here; I am hoping to leave her soon." "Having some yard work or something to do so I can tell if the Abilify is working." "My parents said I can come home." Denies SI. Denies HI. Denies AVH. The patient is stable no acute distress noted. The patient is depressed, irritable, and agitated. Per staff report the patient is medication compliant but refused her Remeron last night. Per staff report patient was given PRN A tivan for agitation. Will continue daily assessment and adjusting treatment as needed. Closely monitor behavior and response to medication during hospitalization. Collateral was received from both parents and they both agreed Michelle is not allowed back to their home until she is more stable. They both are many Liliane attempts rehab for alcoholism before returning to their home. Results Of any Diagn. Testing REVIEW OF LABS WBC 5.2 COVID NEGATIVE RBC 3.78 HEMOGLOBIN 11.8 HEMATOCRIT 35.6 PLATELETS 179 SODIUM 142 POTASSIUM 4.4 CHLORIDE 108 ANION GAP5 BUN 12 CREATININE 0.76 GLUCOSE 84 CALCIUM 8.3 ALBUMIN 3.3 TSH 1.51 ETHYL ALCOHOL LEVEL 88 URINALYSIS NEGATIVE URINE TOX SCREEN POSITIVE FOR BENZODIAZEPINES Appearnace: Other Speech: Other (CIRCUMSTANTIAL) Eye Contact: Avoidant Motor Activity: Normal Affect: Labile Mood: Anxious, Depressed Orientation Impairment: None Memory Impairment: None Attention: Normal Hallucinations: None Other: None Suicidality: None Homicidality: None Delusions: None Behavior: Agitated Insight: Poor Judgment: Poor Treatment ABILIFY 15 MG P.O. Q.H.S. X 14 DAYS ABILIFY 960MG IM X1-GIVEN ON 08/28/2024 TRAZODONE 50 MG P.O. Q.6 PRN ATIVAN 0.5 MG P.O. BID PRN BENADRYL 50 MG P.O. Q.6 PRN THORAZINE 50 MG P.O. Q.6 PRN Discontinue REMERON 7.5MG PO QHS Initiate GABAPENTIN 300 MG PO TID Initiate PROZAC 20MG PO DAILY Monitoring by Staff, Milieu, Group, and Individual counseling as needed -- According to the [place] Suicide Assessment the above named patient is on Q15 MINUTE CHECKS. [id number]-The patient does not have a good safety plan for discharge at this time. We are still titrating medications to an effective dose while maintaining a therapeutic environment to prevent decompensation and readmission. Total time spent 40 minutes on REVIEW OF Clinical notes [X ] RN notes [X] PCT documentation [X] SW notes Labs [ X] Medications [X] Care trends/care activity [X] Vitals [X] DISCUSSION WITH turning and beading machine operator [X] Staff SW Treatment Team [X] Discharge UNSURE AT THIS TIME. DISCHARGE HOMELESS ONCE STABLE. CODING VISIT-PSYCHIATRY Date of Service: Aug 30, 2024 Billing Provider: FER,ZAHIDA SPEECH AND LANGUAGE TUTOR Psych Common Visit Codes: [id number] INP/OBS CARE(Mod) ZAHIDA MONROE APRN Aug 30, 2024 11:01
[2024-08-30] MEDS: FLUoxetine 20mg capsule PO SCH (11:43)
[2024-08-30] MEDS: gabapentin 300mg capsule PO SCH (12:36)
[2024-08-30] MEDS ORDERED: LORazepam 1 MG tablet PO PRN (18:20)
[2024-08-30] MEDS: hydrOXYzine 25 MG tablet PO PRN (18:20)
[2024-08-30 19:00] VITALS: RESP 18; O2SAT 98
[2024-08-30 20:00] VITALS: BP 101/56; PULSE 95; RESP 18; TEMP 98.8; O2SAT 98
--- NOTE | 2024-08-30 20:15 | PROGRESS NOTE ---
Daily Progress Note Providers to CC ~ Antibiotic Timeout Antibiotic Ordered?: No Subjective This is the hospitalist progress note on patients hospitalized at [facility]. The patient is thought she has a allergic reaction to something and explained that her heart raced and she had palpitations. I informed the patient that she was having a panic attack and that that is not a sign of an allergic reaction Objective Vital Signs Date Time Temp Pulse Resp B/P (MAP) Pulse Ox O2 Delivery O2 Flow Rate FiO2 08/30/24 07:30 14 98 Room Air 0.0 08/30/24 07:30 97.7 56 121/76 (91) Gen. No acute distress alert and oriented Lungs clear to ascultation bilaterally, no wheezes rales or rhonchi appreciated Heart normal sinus rhythm no murmurs rubs or clicks noted Abdomen soft nontender bowel sounds are normoactive Lower extremities no clubbing cyanosis, nor edema appreciated bilaterally Problem\Assessment\Plan 44 years old female patient came to the hospital with signs of anxiety, depression. Schizoaffective disorder: Bipolar affective disorder: Alcohol abuse: Continue management as per psychiatrist. Disposition: Hospitalist team will continue to follow the patient. Continue management as per psychiatrist. No acute medical complaints or concerns were voiced by the patient. Date of Service: Aug 30, 2024 Billing Provider: MAT ANNE DO Common Visit Codes: [id number] INP/OBS CARE(LOW) MAT ANNE DO Aug 30, 2024 20:15
[2024-08-31 07:30] VITALS: BP 92/72; PULSE 89; RESP 16; TEMP 97.5; O2SAT 97
[2024-08-31] MEDS: LORazepam 0.5 MG tablet PO PRN (11:48)
--- NOTE | 2024-08-31 12:02 | PROGRESS NOTE ---
Progress Note Dictate Providers to CC ~ Central Line/PICC still needed: N\\A Antibiotic Ordered?: No MRSA Education MRSA Education Provided to pt: No Objective Vitals Vital Signs Date Time Temp Pulse Resp B/P (MAP) Pulse Ox O2 Delivery O2 Flow Rate FiO2 08/31/24 07:30 16 97 Room Air 0.0 08/31/24 07:30 97.5 89 92/72 (79) Problem\\Assessment\\Plan Problems/Diagnosis: (1) Schizoaffective disorder (2) Bipolar affective disorder (3) Alcohol abuse Psychiatrist's Progress Note Date of Service: Aug 31, 2024 Notes CHART REVIEW Michelle is a 44-year-old female placed on a 1799 by S [facility] ED for danger to self after presenting to the ED showing signs of anxiety, tearfulness, reports she has been drinking multiple bottles of wine daily for years, tends to ramble with pressured speech. Report at [facility] ED is positive for benzodiazepine and alcohol. Cristobal reports awareness of self, surrounding, hospital location in the approximate date and time. And reports she is a resident of [facility] residing with her until one week ago when she moved to [facility] to live with her parents; Cristobal reports her is unable to "deal with me." Reports history of alcohol abuse, bipolar disorder, schizophrenia and PTSD. Last psychiatric hospital F admission by self report was asked [facility] approximately one year ago. Liliane reports exhibiting impulse behaviors with recent examples that includes shaving off her hair in remains restless, pacing while in the ED. ASSESSMENT The patient was interviewed in observation room. The patient was actively walking in the hallway. The patient endorses "I am mess." The same thing, the meds like always." "I feel more scrambled then when I came in." "I am having trouble swallowing and chest tightness." Despite the patient endorsing she is having trouble swallowing per staff report patient is eating a 100% of meals. We will order STAT EKG and Speech evaluation. Denies SI. Denies HI. Denies AVH. The patient endorses adequate sleep and food intake. The patient is stable no acute distress noted. The patient is less depressed, some what irritable, and some what agitated. Staff report patient is medication compliant. Per staff report no abnormal behaviors. Will continue daily assessment and adjusting treatment as needed. Closely monitor behavior and response to medication during hospitalization. Michelle mom called endorsing Michelle was accepted at [facility] for TMS and wanted Michelle discharged immediately. Eva was notified that no social media director was on this weekend and to ensure that Michelle had a safe discharge and to set up transportation. Eva was informed we needed to wait until Monday to ensure a safe discharge and schedule transportation to [facility]. Results Of any Diagn. Testing REVIEW OF LABS WBC 5.2 COVID NEGATIVE RBC 3.78 HEMOGLOBIN 11.8 HEMATOCRIT 35.6 PLATELETS 179 SODIUM 142 POTASSIUM 4.4 CHLORIDE 108 ANION GAP5 BUN 12 CREATININE 0.76 GLUCOSE 84 CALCIUM 8.3 ALBUMIN 3.3 TSH 1.51 ETHYL ALCOHOL LEVEL 88 URINALYSIS NEGATIVE URINE TOX SCREEN POSITIVE FOR BENZODIAZEPINES Appearnace: Other Speech: Other (CIRCUMSTANTIAL) Eye Contact: Avoidant Motor Activity: Normal Affect: Constricted Orientation Impairment: None Memory Impairment: None Attention: Normal Hallucinations: None Other: None Suicidality: None Homicidality: None Delusions: None Behavior: Cooperative Insight: Poor Judgment: Poor Treatment ABILIFY 15 MG P.O. Q.H.S. X 14 DAYS ABILIFY 960MG IM X1-GIVEN ON 08/28/2024 TRAZODONE 50 MG P.O. Q.6 PRN ATIVAN 0.5 MG P.O. DAILY PRN BENADRYL 50 MG P.O. Q.6 PRN THORAZINE 50 MG P.O. Q.6 PRN GABAPENTIN 300 MG PO TID PROZAC 20MG PO DAILY Monitoring by Staff, Milieu, Group, and Individual counseling as needed -- According to the [place] Suicide Assessment the above named patient is on Q15 MINUTE CHECKS. [id number]-The patient does not have a good safety plan for discharge at this time. We are still titrating medications to an effective dose while maintaining a therapeutic environment to prevent decompensation and readmission. Total time spent 35 minutes on REVIEW OF Clinical notes [X ] RN notes [X] PCT documentation [X] SW notes Labs [ X] Medications [X] Care trends/care activity [X] Vitals [X] DISCUSSION WITH machinist apprentice [X] Staff SW Treatment Team [X] Discharge UNSURE AT THIS TIME. DISCHARGE HOMELESS ONCE STABLE. CODING VISIT-PSYCHIATRY Date of Service: Aug 31, 2024 Billing Provider: ZAHIDA MONROE APRN Psych Common Visit Codes: [id number] INP/OBS CARE(Mod) ZAHIDA MONROE APRN Aug 31, 2024 12:02
--- NOTE | 2024-08-31 12:42 | ELECTROCARDIOGRAPH REPORT ---
[facility] Test Date: 2024-08-31 Test Time: 12:41:10 Pat Name: SUMMER MARTÍNEZ Department: [facility] Patient ID: [facility]-[id number] Room: 323 B Gender: F Educational Interpreter: : 1980 Requested By: ZAHIDA MONROE Order Number: [id number] Reading MD: Dr. Claribel Carrillo Measurements Intervals [place] Rate: 49 P: 55 KS: 123 QRS: 46 QRSD: 99 T: 48 QT: 428 QTc: 387 Interpretive Statements Sinus bradycardia Abnormal R-wave progression, early transition Electronically Signed On 09-01-2024 19:12:[address] Claribel Carrillo Please click the below link to view image of tracing.
[2024-08-31 19:00] VITALS: RESP 16; O2SAT 98
[2024-08-31 20:00] VITALS: BP 105/58; PULSE 55; RESP 16; TEMP 97; O2SAT 96
[2024-08-31] MEDS: aripiprazole 15 MG tablet PO SCH (21:00)
[2024-09-01 07:00] VITALS: RESP 16; O2SAT 96
[2024-09-01 08:00] VITALS: BP 94/50; PULSE 60; RESP 16; TEMP 98.6; O2SAT 92
--- NOTE | 2024-09-01 11:06 | PROGRESS NOTE ---
Progress Note Dictate Providers to CC ~ Central Line/PICC still needed: N\\A Antibiotic Ordered?: No MRSA Education MRSA Education Provided to pt: No Objective Vitals Vital Signs Date Time Temp Pulse Resp B/P (MAP) Pulse Ox O2 Delivery O2 Flow Rate FiO2 09/01/24 08:00 98.6 60 16 94/50 (65) 92 Room Air 09/01/24 07:00 0.0 Problem\\Assessment\\Plan Problems/Diagnosis: (1) Schizoaffective disorder (2) Bipolar affective disorder (3) Alcohol abuse Psychiatrist's Progress Note Date of Service: Sep 01, 2024 Notes CHART REVIEW Michelle is a 44-year-old female [place] on [place] 1799 [place] [facility] [place] self after presenting to the ED showing signs of anxiety, tearfulness, reports she has been drinking multiple bottles of wine daily for years, tends to ramble with pressured speech. Report at [facility] ED is positive for benzodiazepine and alcohol. Cristobal reports awareness of self, surrounding, hospital location in the approximate date and time. And reports she is a resident of [facility] residing with her until one week ago when she moved to [facility] to live with her parents; Cristobal reports her is unable to "deal with me." Reports history of alcohol abuse, bipolar disorder, schizophrenia and PTSD. Last psychiatric hospital [facility] admission by self report was asked [facility] approximately one year ago. Liliane reports exhibiting impulse behaviors with recent examples that includes shaving off her hair in remains restless, pacing while in the ED. ASSESSMENT The patient was interviewed in observation room. The patient was actively doing yoga in room. The patient endorses "I am feeling better." The patient endorses her parents want her to go do TMS but patient endorses "I don't think it makes sense to do it right now after starting all these medications." "My parents said I can come home to their house." We will follow-up her parents tommorw. Patient endorses no worsening mental health symptoms. The patient denies any chest pain. Denies SI. Denies HI. Denies AVH. The patient endorses adequate sleep and food intake. The patient is stable no acute distress noted. The patient is less depressed, cooperative, and engaged in session. Staff report patient is medication compliant. Per staff report no abnormal behaviors. The patient has shown some improvement since admission. Will continue daily assessment and adjusting treatment as needed. Closely monitor behavior and response to medication during hospitalization. Results Of any Diagn. Testing REVIEW OF LABS WBC 5.2 COVID NEGATIVE RBC 3.78 HEMOGLOBIN 11.8 HEMATOCRIT 35.6 PLATELETS 179 SODIUM 142 POTASSIUM 4.4 CHLORIDE 108 ANION GAP5 BUN 12 CREATININE 0.76 GLUCOSE 84 CALCIUM 8.3 ALBUMIN 3.3 TSH 1.51 ETHYL ALCOHOL LEVEL 88 URINALYSIS NEGATIVE URINE TOX SCREEN POSITIVE FOR BENZODIAZEPINES Appearnace: Other Speech: Other (CIRCUMSTANTIAL) Eye Contact: Normal Motor Activity: Normal Affect: Full Orientation Impairment: None Memory Impairment: None Attention: Normal Hallucinations: None Other: None Suicidality: None Homicidality: None Delusions: None Behavior: Cooperative Insight: Fair, Poor Judgment: Poor Treatment ABILIFY 15 MG P.O. Q.H.S. ABILIFY 960MG IM X1-GIVEN ON 08/28/2024 TRAZODONE 50 MG P.O. Q.6 PRN ATIVAN 0.5 MG P.O. DAILY PRN BENADRYL 50 MG P.O. Q.6 PRN THORAZINE 50 MG P.O. Q.6 PRN GABAPENTIN 300 MG PO TID PROZAC 20MG PO DAILY Monitoring by Staff, Milieu, Group, and Individual counseling as needed -- According to the [place] Suicide Assessment the above named patient is on Q15 MINUTE CHECKS. [id number]-The patient does not have a good safety plan for discharge at this time. We are still titrating medications to an effective dose while maintaining a therapeutic environment to prevent decompensation and readmission. Total time spent 50 minutes on REVIEW OF Clinical notes [X ] RN notes [X] PCT documentation [X] SW notes Labs [ X] Medications [X] Care trends/care activity [X] Vitals [X] DISCUSSION WITH business info consultant [X] Staff SW Treatment Team [X] Discharge UNSURE AT THIS TIME. DISCHARGE HOMELESS ONCE STABLE. CODING VISIT-PSYCHIATRY Date of Service: Sep 01, 2024 Billing Provider: ZAHIDA MONROE APRN Psych Common Visit Codes: [id number] INP/OBS CARE(Mod) ZAHIDA MONROE APRN Sep 01, 2024 11:06
--- NOTE | 2024-09-01 15:43 | PROGRESS NOTE ---
Daily Progress Note Providers to CC ~ Antibiotic Timeout Antibiotic Ordered?: No Subjective This is the hospitalist progress note on patients hospitalized at [facility] psychiatric [facility] [place] [facility]. The patient is sitting up in bed and has no acute complaints and denies any symptoms of alcohol withdrawal and does not exhibit any tremors. The patient has no acute medical complaints or concerns. Objective Vital Signs Date Time Temp Pulse Resp B/P (MAP) Pulse Ox O2 Delivery O2 Flow Rate FiO2 09/01/24 08:00 98.6 60 16 94/50 (65) 92 Room Air 09/01/24 07:00 0.0 Gen. No acute distress alert and oriented Lungs clear to ascultation bilaterally, no wheezes rales or rhonchi appreciated Heart normal sinus rhythm no murmurs rubs or clicks noted Abdomen soft nontender bowel sounds are normoactive Lower extremities no clubbing cyanosis, nor edema appreciated bilaterally Problem\Assessment\Plan 44 years old female patient came to the hospital with signs of anxiety, depression. Schizoaffective disorder: Bipolar affective disorder: Alcohol abuse: Continue management as per psychiatrist. Disposition: Hospitalist team will continue to follow the patient. Continue man agement as per psychiatrist. No acute medical complaints or concerns were voiced by the patient. Date of Service: Sep 01, 2024 Billing Provider: MAT ANNE DO Common Visit Codes: [id number] INP/OBS CARE(LOW) MAT ANNE DO Sep 01, 2024 15:43
[2024-09-01 19:00] VITALS: RESP 14; O2SAT 97
[2024-09-01 20:00] VITALS: BP 103/57; PULSE 60; RESP 14; TEMP 98; O2SAT 97
[2024-09-02 07:00] VITALS: RESP 16; O2SAT 98
[2024-09-02 08:00] VITALS: BP 103/63; PULSE 78; RESP 16; TEMP 98.1; O2SAT 98
--- NOTE | 2024-09-02 11:07 | PROGRESS NOTE ---
Progress Note Dictate Providers to CC ~ Central Line/PICC still needed: N\\A Antibiotic Ordered?: No MRSA Education MRSA Education Provided to pt: No Objective Vitals Vital Signs Date Time Temp Pulse Resp B/P (MAP) Pulse Ox O2 Delivery O2 Flow Rate FiO2 09/02/24 08:00 98.1 78 16 103/63 (76) 98 09/02/24 07:00 Room Air 0.0 Problem\\Assessment\\Plan Problems/Diagnosis: (1) Schizoaffective disorder (2) Bipolar affective disorder (3) Alcohol abuse Psychiatrist's Progress Note Date of Service: Sep 02, 2024 Notes CHART REVIEW Michelle is a 44-year-old female [place] 1799 [place] [facility] [place] after presenting to the ED showing signs of anxiety, tearfulness, reports she has been drinking multiple bottles of wine daily for years, tends to ramble with pressured speech. Report at [facility] ED is positive for benzodiazepine and alcohol. Cristobal reports awareness of self, surrounding, hospital location in the approximate date and time. And reports she is a resident of [facility] residing with her until one week ago when she moved to [facility] to live with her parents; Cristobal reports her is unable to "deal with me." Reports history of alcohol abuse, bipolar disorder, schizophrenia and PTSD. Last psychiatric hospital F admission by self report was asked [facility] approximately one year ago. Liliane reports exhibiting impulse behaviors with recent examples that includes shaving off her hair in remains restless, pacing while in the ED. ASSESSMENT The patient was interviewed in observation room with staff present. The patient was actively standing in hallway talking on telephone. The patient endorses "My head is so full I want to take a gun and shot myself." "I need to be transferred to the ER for head." The patient was informed medical can be notified and they will come see her on the unit. The patient endorses "I am just being sarcastic." The patient endorses "I am not taking anymore medication; I took medication so I can go home and I am still here." Patient is going on and on about some genetic testing she had previously and medications build up in her system easily. "I was on the lowest dose of lithium and the next day I had lithium toxicity." "All meds just build up in my system something that is psychiatry needs to figure out." "Medications stay in my system; oh my head is just all cloudy." "My parents wants me to have TMS but I don't want it." "but I know that is the only way they will let me home." "My mom she doesn't know; you have to talk with my dad." Denies SI. Denies HI. Denies AVH. The patient endorses adequate sleep and food intake. The patient is stable no acute distress noted. The patient is less depressed, erratic behavior, uncooperative at times, and engaged in session. The patient is going to different staff members endorsing another staff member told her she was being discharged. The patient is endorsing somatic complaints to be taken off the unit. Extensive re-education give to Michelle regarding her medication regime and why each medication was ordered, which diagnosis was for which medication, the dosages and side effects. The patient was unwilling to allow this casualty underwriter to call her parents today to get follow-up on discharge to [place]. "This is what my mom wants; I don't want TMS." The patient endorses "I will explain to them." The patient seems to be playing both sides against each other in order to get what she wants. "The patient seems to be all over the place has no insight and poor judgment into her mental health. Staff report patient is medication compliant. Per staff report no abnormal behaviors. Will continue daily assessment and adjusting treatment as needed. Closely monitor behavior and response to medication during hospitalization. The director of social work will follow-up with Michelle's parents regarding if she is allowed to return to their home when Michelle is ready for discharge. Will add personalty disorder to diagnosis. Results Of any Diagn. Testing REVIEW OF LABS WBC 5.2 COVID NEGATIVE RBC 3.78 HEMOGLOBIN 11.8 HEMATOCRIT 35.6 PLATELETS 179 SODIUM 142 POTASSIUM 4.4 CHLORIDE 108 ANION GAP5 BUN 12 CREATININE 0.76 GLUCOSE 84 CALCIUM 8.3 ALBUMIN 3.3 TSH 1.51 ETHYL ALCOHOL LEVEL 88 URINALYSIS NEGATIVE URINE TOX SCREEN POSITIVE FOR BENZODIAZEPINES Appearnace: Other Speech: Pressured, Other (CIRCUMSTANTIAL) Eye Contact: Normal Motor Activity: Normal Affect: Labile Mood: Angry, Irritable Orientation Impairment: None Memory Impairment: None Attention: Normal Hallucinations: None Other: None Suicidality: None Homicidality: None Delusions: None Behavior: Cooperative, Agitated Insight: Poor Judgment: Poor Treatment ABILIFY 15 MG P.O. Q.H.S. ABILIFY 960MG IM X1-GIVEN ON 08/28/2024 TRAZODONE 50 MG P.O. Q.6 PRN ATIVAN 0.5 MG P.O. DAILY PRN BENADRYL 50 MG P.O. Q.6 PRN THORAZINE 50 MG P.O. Q.6 PRN GABAPENTIN 300 MG PO TID PROZAC 20MG PO DAILY Monitoring by Staff, Milieu, Group, and Individual counseling as needed -- According to the [place] Suicide Assessment the above named patient is on Q15 MINUTE CHECKS. [id number]-The patient does not have a good safety plan for discharge at this time. We are still titrating medications to an effective dose while maintaining a therapeutic environment to prevent decompensation and readmission. Total time spent 40 minutes on REVIEW OF Clinical notes [X ] RN notes [X] PCT documentation [X] SW notes Labs [ X] Medications [X] Care trends/care activity [X] Vitals [X] DISCUSSION WITH [employer] operations consultant [X] Staff SW Treatment Team [X] Discharge UNSURE AT THIS TIME. DISCHARGE HOMELESS ONCE STABLE. CODING VISIT-PSYCHIATRY Date of Service: Sep 02, 2024 Billing Provider: ZAHIDA MONROE APRN Psych Common Visit Codes: [id number] INP/OBS CARE(Mod) ZAHIDA MONROE APRN Sep 02, 2024 11:06
[2024-09-02] MEDS: chlorproMAZINE 25mg tablet PO PRN (11:48)
[2024-09-02 19:00] VITALS: RESP 16; O2SAT 97
[2024-09-02] MEDS: divalproex sod 250mg ER (24-hour) tablet PO SCH (19:40)
[2024-09-02 20:00] VITALS: BP 99/58; PULSE 59; RESP 16; TEMP 97.4; O2SAT 97
[2024-09-02] MEDS: hydrOXYzine 25 MG tablet PO SCH (20:00)
[2024-09-02] MEDS ORDERED: hydrOXYzine 25 MG tablet PO SCH ×2 (20:00)
[2024-09-03 07:51] VITALS: BP 100/56; PULSE 69; RESP 16; TEMP 98; O2SAT 98
[2024-09-03] MEDS: FLUoxetine 10mg capsule PO SCH (08:50)
--- NOTE | 2024-09-03 14:16 | PROGRESS NOTE ---
Progress Note Dictate Providers to CC ~ Central Line/PICC still needed: N\\A Antibiotic Ordered?: No MRSA Education MRSA Education Provided to pt: No Objective Vitals Vital Signs Date Time Temp Pulse Resp B/P (MAP) Pulse Ox O2 Delivery O2 Flow Rate FiO2 09/03/24 07:51 98.0 69 16 100/56 (71) 98 Room Air 09/02/24 19:00 0.0 Problem\\Assessment\\Plan Problems/Diagnosis: (1) Schizoaffective disorder (2) Bipolar affective disorder (3) Alcohol abuse (4) Personality disorder Psychiatrist's Progress Note Date of Service: Sep 03, 2024 Notes CHART REVIEW Michelle is a 44-year-old female [place] on [place] 1799 [place] [facility] [place] after presenting to the ED showing signs of anxiety, tearfulness, reports she has been drinking multiple bottles of wine daily for years, tends to ramble with pressured speech. Report at [facility] ED is positive for benzodiazepine and alcohol. Cristobal reports awareness of self, surrounding, hospital location in the approximate date and time. And reports she is a resident of [facility] residing with her until one week ago when she moved to [facility] to live with her parents; Cristobal reports her is unable to "deal with me." Reports history of alcohol abuse, bipolar disorder, schizophrenia and PTSD. Last psychiatric hospital F admission by self report was asked [facility] approximately one year ago. Liliane reports exhibiting impulse behaviors with recent examples that includes shaving off her hair in remains restless, pacing while in the ED. ASSESSMENT The patient was interviewed in observation room with staff present. The patient was actively resting in bed with eyes closed. The patient endorses "I couldn't stop crying after lunch I am just depressed." It my head to stopped thinking about everything that is going on and I could not get myself to read or draw." Do not want to switch to Zoloft because Wellbutrin has helped me the most in the past with focusing. 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 Well I guess it makes sense for me to go. If I feel better here I do not think I need to go there." "I never should have taken that an Abilify injections when I took it the last time I was just downing down coffee all day all night." "I only took the injection this time because my mom said if I took the injection I can come home." "I never should have taken it." "When I take the oral Abilify it makes my head all cloudy." "I just need to stand up to my parents." Denies SI. Denies HI. Denies AVH. The patient endorses adequate sleep and food intake. The patient is stable no acute distress noted. The patient is depressed, irritable, agitated, and engaged in session. The patient was informed that it is recommended to take oral Abilify x2 weeks until injection starts working. Per staff report patient is medication non-compliant. Per staff report no abnormal behaviors. Will continue daily assessment and adjusting treatment as needed. Closely monitor behavior and response to medication during hospitalization. Collateral received from Eva with the patient present and with Erinns consent. Eva was informed that patient is refusing to take Zoloft per her request. Eva was also informed that is the patient does not want to go to [facility] at this time. Will add personalty disorder to diagnosis. Pt is requesting medication changes daily. The patient endorses the medications are not working but haven't giving time despite education. Results Of any Diagn. Testing REVIEW OF LABS WBC 5.2 COVID NEGATIVE RBC 3.78 HEMOGLOBIN 11.8 HEMATOCRIT 35.6 PLATELETS 179 SODIUM 142 POTASSIUM 4.4 CHLORIDE 108 ANION GAP5 BUN 12 CREATININE 0.76 GLUCOSE 84 CALCIUM 8.3 ALBUMIN 3.3 TSH 1.51 ETHYL ALCOHOL LEVEL 88 URINALYSIS NEGATIVE URINE TOX SCREEN POSITIVE FOR BENZODIAZEPINES Speech: Other (CIRCUMSTANTIAL) Eye Contact: Avoidant Motor Activity: Restless Affect: Flat Mood: Irritable Orientation Impairment: None Memory Impairment: None Attention: Normal Hallucinations: None Other: None Suicidality: None Homicidality: None Delusions: None Behavior: Agitated Insight: Poor Judgment: Poor Treatment ABILIFY 15 MG P.O. Q.H.S. ABILIFY 960MG IM X1-GIVEN ON 08/28/2024 TRAZODONE 50 MG P.O. Q.6 PRN ATIVAN 0.5 MG P.O. DAILY PRN BENADRYL 50 MG P.O. Q.6 PRN THORAZINE 50 MG P.O. Q.6 PRN GABAPENTIN 300 MG PO TID Discontinue PROZAC 20MG PO DAILY-per patient's request Initiate LAMICTAL 50 MG P.O. Q.H.S. Initiate WELLBUTRIN 100 MG P.O. B.I.D. Monitoring by Staff, Milieu, Group, and Individual counseling as needed -- According to the [place] Suicide Assessment the above named patient is on Q15 MINUTE CHECKS. [id number]-The patient does not have a good safety plan for discharge at this time. We are still titrating medications to an effective dose while maintaining a therapeutic environment to prevent decompensation and readmission. Total time spent 65 minutes on REVIEW OF Clinical notes [X ] RN notes [X] PCT documentation [X] SW notes Labs [ X] Medications [X] Care trends/care activity [X] Vitals [X] DISCUSSION WITH sealant mixer [X] Staff SW Treatment Team [X] Discharge UNSURE AT THIS TIME. DISCHARGE HOMELESS ONCE STABLE. CODING VISIT-PSYCHIATRY Date of Service: Sep 03, 2024 Billing Provider: ZAHIDA MONROE APRN Psych Common Visit Codes: [id number] INP/OBS CARE(Mod) ZAHIDA MONROE APRN Sep 03, 2024 14:16
[2024-09-03] MEDS: lamoTRIgine 25mg tablet PO SCH (16:06)
--- NOTE | 2024-09-03 17:39 | PROGRESS NOTE- Residence ---
Progress Note - Resident Providers to CC Resident Creating Document: DHAVAL CASTREJON, RES ~ Antibiotic Timeout Antibiotic Ordered?: No Subjective The patient has been evaluated in mental health. The patient denies any medical complaint. Objective Vital Signs Date Time Temp Pulse Resp B/P (MAP) Pulse Ox O2 Delivery O2 Flow Rate FiO2 09/03/24 07:51 98.0 69 16 100/56 (71) 98 Room Air 09/02/24 19:00 0.0 Physical exam: General: Well alert, well oriented, not confused, not agitated, not in acute distress, well cooperated during the physical. HEENT: Conjunctive are pink, sclerae clear, no icterus, pupil is equal in both sides, reactive to light, no ear discharge, no pharyngeal erythema or an edema. Neck: Supple, no JVD, no lymphadenopathy and thyromegaly. Chest: Equal air entry on both lungs, no additional sounds no rhonchi no wheezing at the moment. Cardiovascular: S1-S2 regular sinus rhythm and, regular rate, no gallops, no rubs, no murmurs Abdomen: No visible peristalsis, Bowel sounds present on auscultation, soft, nontender, no guarding, no rigidity Extremities: No obvious deformities, no pitting edema bilaterally, capillary refill intact, peripheral pulsations are intact on both sides Central Nervous System: No focal neurological deficits, no motor or sensory weakness in all 4 extremities, could move all 4 extremities, 2+ deep tendon r eflexes, negative Babinski. Musculoskeletal: No joint swelling, deformities, inflammations, and no scoliosis and back tenderness Skin: Warm and dry. Assessment Assessment 44 years old female patient came to the hospital with signs of anxiety and depression. Plan Plan Schizoaffective disorder: Bipolar affective disorder: Alcohol abuse: Continue management as per psychiatrist. Disposition: The patient currently denies any medical complaint. Hospitalist team will continue to follow the patient. Dhaval Hobbs Internal Medicine Resident [facility] Date of Service: Sep 03, 2024 Billing Provider: LINETTE RESENDIZ MD Common Visit Codes: [id number] INP/OBS CARE(MOD) DHAVAL CASTREJON, [place] Sep 03, 2024 17:39 LINETTE RESENDIZ MD Sep 04, 2024 08:16
[2024-09-03 19:00] VITALS: RESP 16; O2SAT 97
[2024-09-03 20:00] VITALS: BP 101/54; PULSE 62; RESP 16; TEMP 97.5; O2SAT 97
[2024-09-03] MEDS: buPROPion SR 150mg tablet PO SCH (20:00)
[2024-09-04 07:00] VITALS: RESP 12; O2SAT 98
[2024-09-04 08:00] VITALS: BP 109/59; PULSE 66; RESP 12; TEMP 97.3; O2SAT 98
--- NOTE | 2024-09-04 12:30 | PROGRESS NOTE ---
Progress Note Dictate Providers to CC ~ Central Line/PICC still needed: N\\A Antibiotic Ordered?: No MRSA Education MRSA Education Provided to pt: No Objective Vitals Vital Signs Date Time Temp Pulse Resp B/P (MAP) Pulse Ox O2 Delivery O2 Flow Rate FiO2 09/04/24 08:00 97.3 66 12 109/59 (76) 98 Room Air 09/04/24 07:00 0.0 Problem\\Assessment\\Plan Problems/Diagnosis: (1) Schizoaffective disorder (2) Bipolar affective disorder (3) Alcohol abuse (4) Personality disorder Psychiatrist's Progress Note Date of Service: Sep 04, 2024 Notes CHART REVIEW Michelle is a 44-year-old female placed on a 1799 by [facility] ED for danger to self after presenting to the ED showing signs of anxiety, tearfulness, reports she has been drinking multiple bottles of wine daily for years, tends to ramble with pressured speech. Report at [facility] ED is positive for benzodiazepine and alcohol. Cristobal reports awareness of self, surrounding, hospital location in the approximate date and time. And reports she is a resident of [facility] residing with her until one week ago when she moved to [facility] to live with her parents; Cristobal reports her is unable to "deal with me." Reports history of alcohol abuse, bipolar disorder, schizophrenia and PTSD. Last psychiatric hospital F admission by self report was asked [facility] approximately one year ago. Liliane reports exhibiting impulse behaviors with recent examples that includes shaving off her hair in remains restless, pacing while in the ED. ASSESSMENT The patient was interviewed in observation room with staff present. The patient was actively standing in hallway talking on telephone. The patient endorses "I am feeling better a little wired on the Wellbutrin." "It really took away my alcohol cravings." Patient endorses "my parents are mad because I do not want to go to [place] I just feel if I am stable here I am afraid my insurance would not pay for me when I go the [place]." Denies SI. Denies HI. Denies AVH. The patient endorses adequate sleep and food intake. The patient is stable no acute distress noted. The patient is depressed, less irritable, less agitated, and engaged in session. The patient was laughing and joking during session. Per staff report patient is medication non-compliant with oral abilify. Per staff report no abnormal behaviors. Will continue daily assessment and adjusting treatment as needed. Closely monitor behavior and response to medication during hospitalization. Results Of any Diagn. Testing REVIEW OF LABS WBC 5.2 COVID NEGATIVE RBC 3.78 HEMOGLOBIN 11.8 HEMATOCRIT 35.6 PLATELETS 179 SODIUM 142 POTASSIUM 4.4 CHLORIDE 108 ANION GAP5 BUN 12 CREATININE 0.76 GLUCOSE 84 CALCIUM 8.3 ALBUMIN 3.3 TSH 1.51 ETHYL ALCOHOL LEVEL 88 URINALYSIS NEGATIVE URINE TOX SCREEN POSITIVE FOR BENZODIAZEPINES Appearnace: Other Speech: Other (CIRCUMSTANTIAL) Eye Contact: Other (INTERMITTENT) Motor Activity: Normal Affect: Full Orientation Impairment: None Memory Impairment: None Attention: Normal Hallucinations: None Other: None Suicidality: None Homicidality: None Delusions: None Behavior: Cooperative Insight: Fair, Poor Judgment: Poor Treatment ABILIFY 15 MG P.O. Q.H.S. ABILIFY 960MG IM X1-GIVEN ON 08/28/2024 TRAZODONE 50 MG P.O. Q.6 PRN ATIVAN 0.5 MG P.O. DAILY PRN BENADRYL 50 MG P.O. Q.6 PRN THORAZINE 50 MG P.O. Q.6 PRN GABAPENTIN 300 MG PO TID Discontinue PROZAC 20MG PO DAILY-per patient's request LAMICTAL 50 MG P.O. Q.H.S. WELLBUTRIN 100 MG P.O. B.I.D. Monitoring by Staff, Milieu, Group, and Individual counseling as needed -- According to the [place] Suicide Assessment the above named patient is on Q15 MINUTE CHECKS. [id number] patient does not have a good safety plan for discharge at this time. We are still titrating medications to an effective dose while maintaining a therapeutic environment to prevent decompensation and readmission. Total time spent 45 minutes on REVIEW OF Clinical notes [X ] RN notes [X] PCT documentation [X] SW notes Labs [ X] Medications [X] Care trends/care activity [X] Vitals [X] DISCUSSION WITH filling layer up [X] Staff SW Treatment Team [X] Discharge UNSURE AT THIS TIME. DISCHARGE HOMELESS ONCE STABLE. CODING VISIT-PSYCHIATRY Date of Service: Sep 04, 2024 Billing Provider: FER,ZAHIDA DRIVE [employer]ER[employer] POST REPAIRER Psych Common Visit Codes: [id number] INP/OBS CARE(Mod) ZAHIDA MONROE APRN Sep 04, 2024 12:30
[2024-09-04 19:00] VITALS: BP 127/70; PULSE 66; RESP 20; TEMP 97.6; O2SAT 99
[2024-09-05 07:00] VITALS: RESP 16; O2SAT 99
[2024-09-05 07:18] VITALS: BP 119/66; PULSE 94; RESP 16; TEMP 97.9; O2SAT 99
[2024-09-05] MEDS: hydrOXYzine 25 MG tablet PO SCH (07:51)
--- NOTE | 2024-09-05 14:23 | PROGRESS NOTE ---
Progress Note Dictate Providers to CC ~ Central Line/PICC still needed: N\\A Antibiotic Ordered?: No MRSA Education MRSA Education Provided to pt: No Objective Vitals Vital Signs Date Time Temp Pulse Resp B/P (MAP) Pulse Ox O2 Delivery O2 Flow Rate FiO2 09/05/24 07:18 97.9 94 16 119/66 (83) 99 Room Air 09/05/24 07:00 0.0 Problem\\Assessment\\Plan Problems/Diagnosis: (1) Schizoaffective disorder (2) Bipolar affective disorder (3) Alcohol abuse Psychiatrist's Progress Note Date of Service: Sep 05, 2024 Notes CHART REVIEW Michelle is a 44-year-old female placed on a 1799 by S [facility] ED for danger to self after presenting to the ED showing signs of anxiety, tearfulness, reports she has been drinking multiple bottles of wine daily for years, tends to ramble with pressured speech. Report at [facility] ED is positive for benzodiazepine and alcohol. Cristobal reports awareness of self, surrounding, hospital location in the approximate date and time. And reports she is a resident of [facility] residing with her until one week ago when she moved to [facility] to live with her parents; Cristobal reports her is unable to "deal with me." Reports history of alcohol abuse, bipolar disorder, schizophrenia and PTSD. Last psychiatric hospital F admission by self report was asked [facility] approximately one year ago. Liliane reports exhibiting impulse behaviors with recent examples that includes shaving off her hair in remains restless, pacing while in the ED. ASSESSMENT The patient was interviewed in observation room with staff present. The patient was actively walking in the hallway. The patient endorses "I didn't sleep last night and I want to be taken off the Welbutrin." The patient was re-educated that it is not recommended to switch medications daily. The patient verbalized she understanding. "I would like to go to [place] and get TMS." "that is what my parents suggest." "No I don't think I want to go, now." The patient goes back and forth daily regarding if she wants to go to [place] or not for TMS. Denies SI. Denies HI. Denies AVH. The patient endorses adequate sleep and food intake. The patient is stable no acute distress noted. The patient is less depressed, a bit irritable, a bit agitated, (about still being here and if she is going to [place] ot not) and engaged in session. Per staff report patient is medication non-compliant. Per staff report the patient is noted on the phone multiple times on the phone arguing with her mother regarding her coming home to their house. Will continue daily assessment and adjusting treatment as needed. Closely monitor behavior and response to medication during hospitalization. We attempted to call patients parents x3 but was unsuccessful, kept going to [facility]. Results Of any Diagn. Testing REVIEW OF LABS WBC 5.2 COVID NEGATIVE RBC 3.78 HEMOGLOBIN 11.8 HEMATOCRIT 35.6 PLATELETS 179 SODIUM 142 POTASSIUM 4.4 CHLORIDE 108 ANION GAP5 BUN 12 CREATININE 0.76 GLUCOSE 84 CALCIUM 8.3 ALBUMIN 3.3 TSH 1.51 ETHYL ALCOHOL LEVEL 88 URINALYSIS NEGATIVE URINE TOX SCREEN POSITIVE FOR BENZODIAZEPINES Appearnace: Other Speech: Other (INTERMITTANT) Eye Contact: Other Motor Activity: Normal, Restless Affect: Flat Mood: Depressed, Irritable Orientation Impairment: None Memory Impairment: None Attention: Normal Hallucinations: None Other: None Suicidality: None Homicidality: None Delusions: None Behavior: Agitated Insight: Fair, Poor Judgment: Poor Treatment ABILIFY 15 MG P.O. Q.H.S. till 09/12/2023 ABILIFY 960MG IM X1-GIVEN ON 08/28/2024 TRAZODONE 50 MG P.O. Q.6 PRN ATIVAN 0.5 MG P.O. DAILY PRN BENADRYL 50 MG P.O. Q.6 PRN THORAZINE 50 MG P.O. Q.6 PRN GABAPENTIN 300 MG PO TID Discontinue PROZAC 20MG PO DAILY-per patient's request LAMICTAL 50 MG P.O. Q.H.S. WELLBUTRIN 100 MG P.O. B.I.D. Monitoring by Staff, Milieu, Group, and Individual counseling as needed -- According to the [place] Suicide Assessment the above named patient is on Q15 MINUTE CHECKS. [id number]-The patient does not have a good safety plan for discharge at this time. We are still titrating medications to an effective dose while maintaining a therapeutic environment to prevent decompensation and readmission. Total time spent 35 minutes on REVIEW OF Clinical notes [X ] RN notes [X] PCT documentation [X] SW notes Labs [ X] Medications [X] Care trends/care activity [X] Vitals [X] DISCUSSION WITH paint mixer machine [X] Staff SW Treatment Team [X] Discharge UNSURE AT THIS TIME. DISCHARGE HOMELESS ONCE STABLE. CODING VISIT-PSYCHIATRY Date of Service: Sep 05, 2024 Billing Provider: ZAHIDA MONROE APRN Psych Common Visit Codes: [id number] INP/OBS CARE(Mod) ZAHIDA MONROE APRN Sep 05, 2024 14:23
[2024-09-05 19:44] VITALS: RESP 16; O2SAT 98
--- NOTE | 2024-09-05 19:52 | PROGRESS NOTE- Residence ---
Progress Note - Resident Providers to CC Resident Creating Document: CHEN GERMAIN RES ~ Antibiotic Timeout Antibiotic Ordered?: No Subjective Patient was seen at the [facility] unit, does not have any special medical complaint today. He has a concern for insomnia. Objective Vital Signs Date Time Temp Pulse Resp B/P (MAP) Pulse Ox O2 Delivery O2 Flow Rate FiO2 09/05/24 19:44 16 98 Room Air 0.0 09/05/24 07:18 97.9 94 119/66 (83) Vitals were stable at the moment. On exam, General: Well alert, well oriented, not confused, not agitated, not in acute distress, well cooperated during the physical. HEENT: Conjunctive are pink, sclerae clear, no icterus, pupil is equal in both sides, reactive to light, no ear discharge, no pharyngeal erythema or an edema, mouth and lips are moist. Neck: Supple, no JVD, no lymphadenopathy and thyromegaly. Lungs:Equal air entry on both lungs, no additional sounds Heart: S1-S2 regular sinus rhythm and, regular rate, no gallops, no rubs, no murmurs Abdomen: No visible peristalsis, Bowel sounds present on auscultation, soft, nontender, no guarding, no rigidity Extremities: No obvious deformities, no pitting edema bilaterally, capillary refill intact, able to wiggle toes both sides, peripheral pulsations are intact on both sides INVESTMENT ANALYST: No focal neurological deficits, no motor and sensory weakness in all 4 extremities, could move all 4 extremities Musculoskeletal: No joint swelling, deformities, inflammations, and no scoliosis and back tenderness Skin: No active skin lesions and rashes Assessment Assessment 44 years old female patient came to the hospital with signs of anxiety and depression. Plan Plan A 44 years old female patient came to the hospital with signs of anxiety and depression. # Schizoaffective disorder # Bipolar affective disorder # Alcohol abuse -Continue management as per psychiatrist. Disposition: Hospitalist team will follow the patient during hospitalization, you are welcome to questions and medical consultation, appreciate for letting us involved in patient's care. Resident attestation: Patient was seen, examined and discussed with attending MD, Dr. Rubio # insomnia -continue trazodone as needed. CHEN GERMAIN MD Internal Medicine Resident, PGY2 [facility] Date of Service: Sep 05, 2024 Billing Provider: GABE RUBIO MD, TIN, RES Sep 05, 2024 19:52
[2024-09-05 20:43] VITALS: BP 107/57; PULSE 54; RESP 16; TEMP 97.4; O2SAT 98
[2024-09-06] MEDS: QUEtiapine 25mg tablet PO ONE (00:48)
[2024-09-06 07:00] VITALS: RESP 16; O2SAT 97
[2024-09-06 08:00] VITALS: BP 108/61; PULSE 68; RESP 16; TEMP 97.9; O2SAT 97
--- NOTE | 2024-09-06 08:35 | PROGRESS NOTE ---
Progress Note Dictate Providers to CC ~ Central Line/PICC still needed: N\\A Antibiotic Ordered?: No MRSA Education MRSA Education Provided to pt: No Objective Vitals Vital Signs Date Time Temp Pulse Resp B/P (MAP) Pulse Ox O2 Delivery O2 Flow Rate FiO2 09/05/24 20:43 97.4 54 16 107/57 (74) 98 Room Air 09/05/24 19:44 0.0 Counseling Services Smoking & Tobacco Cessation: > 10 Minutes Problem\\Assessment\\Plan Problems/Diagnosis: (1) Schizoaffective disorder (2) Bipolar affective disorder (3) Alcohol abuse (4) Personality disorder Psychiatrist's Progress Note Date of Service: Sep 06, 2024 Notes CHART REVIEW Michelle is a 44-year-old female placed on a 1799 by S [facility] for danger to self after presenting to the ED showing signs of anxiety, tearfulness, reports she has been drinking multiple bottles of wine daily for years, tends to ramble with pressured speech. Report at [facility] ED is positive for benzodiazepine and alcohol. Cristobal reports awareness of self, surrounding, hospital location in the approximate date and time. And reports she is a resident of [facility] residing with her until one week ago when she moved to [place] to live with her parents; Cristobal reports her is unable to "deal with me." Reports history of alcohol abuse, bipolar disorder, schizophrenia and PTSD. Last psychiatric hospital F admission by self report was asked [facility] approximately one year ago. Liliane reports exhibiting impulse behaviors with recent examples that includes shaving off her hair in remains restless, pacing while in the ED. ASSESSMENT The patient was interviewed in observation room with staff present. The patient was actively walking in the hallway. The patient endorses "parents are wanting me to go to [place] her today. Liliane, her nephrology social worker, and myself phoned her parents amador in [place] regarding her being discharged today to go to [place]. Patient's parents are interested in her going to [place] but only if she is discharged and they take her straight to [place] of beds are available. This provider spoke with Liyah at [place] Liyah endorses there are no beds available as of now doctors have not done they are round yet and suggested we call back around 12:00 p.m. the patient asked her parents to "just come pick her up now, I want to hug my dogs" and her parent endorses "no we do not trust you and we will only pick you up and take you straight to [place]." Denies SI. Denies HI. Denies AVH. The patient endorses adequate sleep and food intake. The patient is stable no acute distress noted. The patient is less depressed, a bit irritable, a bit agitated, and engaged in session. Per staff report patient is medication non-compliant. Per staff report the patient is noted on the phone multiple times on the phone arguing with her mother regarding her coming home to their house. Will continue daily assessment and adjusting treatment as needed. Closely monitor behavior and response to medication during hospitalization. Results Of any Diagn. Testing REVIEW OF LABS WBC 5.2 COVID NEGATIVE RBC 3.78 HEMOGLOBIN 11.8 HEMATOCRIT 35.6 PLATELETS 179 SODIUM 142 POTASSIUM 4.4 CHLORIDE 108 ANION GAP5 BUN 12 CREATININE 0.76 GLUCOSE 84 CALCIUM 8.3 ALBUMIN 3.3 TSH 1.51 ETHYL ALCOHOL LEVEL 88 URINALYSIS NEGATIVE URINE TOX SCREEN POSITIVE FOR BENZODIAZEPINES Appearnace: Other Speech: Other (CIRCUMSTANTIAL) Eye Contact: Other (INTERMITTENT) Motor Activity: Normal Affect: Constricted Orientation Impairment: None Memory Impairment: None Attention: Normal Hallucinations: None Other: None Suicidality: None Homicidality: None Delusions: None Behavior: Cooperative Insight: Poor Judgment: Fair, Poor Treatment ABILIFY 15 MG P.O. Q.H.S. till 09/12/2023 ABILIFY 960MG IM X1-GIVEN ON 08/28/2024 TRAZODONE 50 MG P.O. Q.6 PRN ATIVAN 0.5 MG P.O. DAILY PRN BENADRYL 50 MG P.O. Q.6 PRN THORAZINE 50 MG P.O. Q.6 PRN GABAPENTIN 300 MG PO TID Discontinue PROZAC 20MG PO DAILY-per patient's request LAMICTAL 50 MG P.O. Q.H.S. WELLBUTRIN 100 MG P.O. B.I.D. Monitoring by Staff, Milieu, Group, and Individual counseling as needed -- According to the [place] Suicide Assessment the above named patient is on Q15 MINUTE CHECKS. [id number]-The patient does not have a good safety plan for discharge at this time. We are still titrating medications to an effective dose while maintaining a therapeutic environment to prevent decompensation and readmission. Total time spent 35 minutes on REVIEW OF Clinical notes [X ] RN notes [X] PCT documentation [X] SW notes Labs [ X] Medications [X] Care trends/care activity [X] Vitals [X] DISCUSSION WITH framing and hanging [X] Staff SW Treatment Team [X] Discharge UNSURE AT THIS TIME. DISCHARGE HOMELESS ONCE STABLE CODING VISIT-PSYCHIATRY Date of Service: Sep 06, 2024 Billing Provider: ZAHIDA MONROE APRN Psych Common Visit Codes: [id number] INP/OBS CARE(Mod) ZAHIDA MONROE APRN Sep 06, 2024 08:35
--- NOTE | 2024-09-06 13:58 | DISCHARGE SUMMARY ---
Discharge Summary Providers to CC ~ Discharge Summary Admission Diagnosis: SCHIZOEFFECTIVE DISORDER,BIPOLAR AFFECTIVE DISORDER.ETOH ABUSE Hospital Course DATE OF ADMISSION: DATE OF DISCHARGE: Discharge Diagnosis\\Comment: SCHIZOEFFECTIVE DISORDER, BIPOLAR AFFECTIVE DISORDER. ETOH ABUSE PERSONALITY DISORDER Operations\\Procedures: NONE Consultants: MEDICAL TEAM Complications: NONE Condition on DC: Stable 2 or more antipsychotic used: No 2/more antipsychotic addressed: No Does Patient smoke: Yes Smoking education given.: Yes New Medications: Aripiprazole (Aripiprazole) 15 Mg Tablet 15 MG PO HS for 5 Days, TAB DISCCONTINUE ON 09/11/2024 Bupropion HCl (Bupropion HCl Sr) 150 Mg Tablet.er 150 MG PO BID for 14 Days, #28 TAB.SR Lamotrigine (Lamotrigine) 25 Mg Tablet 25 MG PO DAILY for 14 Days, #14 TAB Continued Medications: Doxepin HCl (Doxepin HCl) 10 Mg Capsule 1 CAP PO HS for 14 Days, #14 CAP (This prescription has been renewed) Discontinued Medications: Lorazepam (Ativan) 1 Mg Tablet 1 TAB PO Q6H PRN for for anxiety/agitation, TAB Lurasidone HCl (Latuda) 20 Mg Tablet 1 TAB PO DAILY, TAB Discharge Summary: CHART REVIEW Michelle is a 44-year-old female placed on a 1799 by [facility] ED for danger to self after presenting to the ED showing signs of anxiety, tearfulness, reports she has been drinking multiple bottles of wine daily for years, tends to ramble with pressured speech. Report at [facility] ED is positive for benzodiazepine and alcohol. Cristobal reports awareness of self, surrounding, hospital location in the approximate date and time. And reports she is a resident of [facility] residing with her until one week ago when she moved to [facility] to live with her parents; Cristobal reports her is unable to "deal with me." Reports history of alcohol abuse, bipolar disorder, schizophrenia and PTSD. Last psychiatric hospital [facility] admission by self report was asked [facility] approximately one year ago. Liliane reports exhibiting impulse behaviors with recent examples that includes shaving off her hair in remains restless, pacing while in the ED. Patient actively seen and examined on day of discharge 09/06/2024, by myself, LYNN Stallworth. The patient is interviewed in observation room. The patient endorses "Good." Michelle SI. Denies HI. Denies AVH. Lorraine was able to formulate a safety plan which includes going to the emergency room if symptoms return or worsen. Call [phone] or [phone] for immediate assistance if necessary. During his hospital stay, Michelle receive multidisciplinary treatment he adhered to his medication regimen and has been pleasant and cooperative. She denies any suicidal ideation (SI), homicidal ideation (HI), auditory/visual hallucination (HI). Staff has reported no behavioral issues, and the patient has been sleeping well, adequate food intake, with no mood or behavioral changes noted. The decision to discharge Michelle was made in consensus with the treatment team, including the criminal justice social worker, community engagement coordinator, and scrap charger on duty. The patient was E-scribed a 14-day supply of mediation to preferred pharmacy. MENTAL STATUS EXAM APPEARANCE: APPROPRIATELY. DRESSED IN STREET CLOTHING. SPEECH: CIRCUMSTANTIAL EYE CONTACT: NORMAL AFFECT: CONGRUENT WITH MOOD MOOD: "GOOD" ORIENTATION IMPAIRMENT: NONE MEMORY IMPAIRMENT: NONE ATTENTION: NORMAL HALLUCINATIONS: NONE SUICIDALITY: NONE HOMICIDALITY: NONE DELUSIONS: NONE BEHAVIOR: COOPERATIVE, PLEASANT JUDGMENT: FAIR, POOR INSIGHT: FAIR, POOR Continue Current Inpatient Psychotropic Regimen @ home Follow-Up with Psychiatric Provider Safety Plan Discussed DISCHARGE CONDITION: Her readiness for discharge is supported by his stable mental status, adherence to treatment, and proactive approach to managing his mental health. Denies SI. Denies HI. Denies A/V/H. The patient has been informed to continue follow-up care to ensure ongoing support and monitoring. Patient discharged to her parents. *Problems/Diagnosis: (1) Schizoaffective disorder Status: Acute (2) Bipolar affective disorder Status: Acute (3) Alcohol abuse Status: Acute (4) Personality disorder Total Time Spent on D/C: > 30 Minutes Counseling Services Smoking & Tobacco Cessation: > 10 Minutes CODING VISIT-PSYCHIATRY Date of Service: Sep 06, 2024 Billing Provider: ZAHIDA MONROE APRN Psych Common Visit Codes: [id number] DISCH DAY >30min ZAHIDA MONROE APRN Sep 06, 2024 13:54
[2024-09-06] MEDS ORDERED: DOXE10CA3 PO (14:05)
[2024-09-06] MEDS ORDERED: ARIP15TA68 PO (14:05)
[2024-09-06] MEDS ORDERED: BUPR-72 PO (14:05)
[2024-09-06] MEDS ORDERED: LAMO-24 PO (14:05)
== END 2024-09-06 15:08 | disposition home or self-care (01) | DRG 885 ==
LOC: ER 07:34 → ADULT MH 21:00
PROVIDERS: ADMIT Psychiatry & Neurology Psychiatry; ATTEND Psychiatry & Neurology Psychiatry
PROC: GZHZZZZ Group Psychotherapy (ICD-10-PCS; principal; 2024-08-26)
PROC: GZ51ZZZ Individual Psychotherapy, Behavioral (ICD-10-PCS; 2024-08-26)
DX: F25.9 Schizoaffective disorder, unspecified (principal); R45.851 Suicidal ideations; Z59.00 Homelessness unspecified; F10.20 Alcohol dependence, uncomplicated; Z20.822 Contact with and (suspected) exposure to COVID-19; G47.00 Insomnia, unspecified; F31.9 Bipolar disorder, unspecified; F43.10 Post-traumatic stress disorder, unspecified; Z91.148 Patient's other noncompliance with medication regimen for other reason; Z79.899 Other long term (current) drug therapy; Z87.891 Personal history of nicotine dependence
CPT/HCPCS: 36415; 80048; 80061; 80305; 80320; 81001; 81025; 82948; 83036; 84443; 85025; 87081; 87811; 92508; 92616; 93005; 99285; A6250; Q0161; Q0177

== ENCOUNTER 2024-12-10 18:30 | Emergency (ER) | payer BC, MEDICAID ==
[~2024-12-10] VITALS: Ht 175.3 cm; Wt 65.6 kg
[~2024-12-10 18:30] MED LIST changes: -ARIP10TA15 PO; +ARIP15TA68 PO; +BUPR-72 PO; +DOXE10CA3 PO; -GABA-532 PO; +LAMO-24 PO; -NO HOME MEDS
--- NOTE | 2024-12-10 18:55 | Physician Documentation ---
History of Present Illness ~ Chief Complaint: Hypotension Stated Complaint: WITHDRAWAL Time Seen by MD: 18:52 OK to notify your PCP?: Yes HPI Patient presents to the emergency room after binge drinking after running out of her ADHD medication. She is trying to self medicate she states. Patient was seen here a proximally one month ago admitted for psychiatric evaluation. It seems that patient gets into these cycles where she tries to self medicate with alcohol and this is why she is here to prevent any further mental decompensation. She states she has a primary care appointment in two weeks. Medication Reconciliation Allergies: Coded Allergies: No Known Allergies (Unverified , 08/25/24) Scheduled Aripiprazole (Aripiprazole), 15 MG PO HS Bupropion HCl (Bupropion HCl Sr), 150 MG PO BID Doxepin HCl (Doxepin HCl), 1 CAP PO HS Lamotrigine (Lamotrigine), 25 MG PO DAILY Past Medical History Past Medical History: Anxiety, Bipolar, Depression Past Surgical History: noncontributory Alcohol Use: Abuse Drug Use: marijuana Lives with: Family Lives In: Home Occupation: unemployed Review of Systems ROS All review of systems negative except as per HPI Physical Exam Vital Signs: Temperature: 97.7, Source: Oral, Heart Rate: 59, Respiratory Rate: 14, BP: 85/51, Pulse Oximetry: 97 Oxygen Flow Rate: 0 Physical Exam General: Patient is awake, alert, oriented x4 in no acute distress Head: Normocephalic and atraumatic. Eyes: Conjunctival normal. EOMI. PERRL. ENT: Mucous membranes moist. Neck: Supple, trachea is midline. Chest: Clear to auscultation bilaterally without rales, rhonchi, or wheezes. There is no accessory muscle use or retractions. Cardiac: Bradycardic and regular without murmurs, gallops, or rubs. Abd: Soft, nondistended, nontender, with normoactive bowel sounds. No guarding, rebound, or rigidity. Progress Results/Orders Results/Orders Orders - ALTON JACOME MD Chest,Single View (12/10/24 19:17) Monitor (12/10/24 18:37) Saline Lock (12/10/24 18:37) Oxygen (12/10/24 18:37) Electrocardiogram (12/10/24 18:37) Hs Troponin I W Calculations (12/10/24 20:37) Hs Troponin I W Calculations (12/10/24 21:37) Urinalysis, Cult If Indicated (12/10/24 18:53) Hcg, Ur Ql (12/10/24 18:53) Normal Saline 1000ml (0.9% Sodium Chlori (12/10/24 20:20) Completed Orders - ALTON JACOME MD Chest,Single View (12/10/24 19:17) Cbc/Diff (12/10/24 18:37) BMP (12/10/24 18:37) PBNP (12/10/24 18:37) Hs Troponin I W Calculations (12/10/24 18:37) Normal Saline 1000ml (0.9% Sodium Chlori (12/10/24 18:55) Procalcitonin (12/10/24 18:53) Ethanol (12/10/24 18:54) Olanzapine Tablet (Zyprexa Tablet) (12/10/24 19:00) Olanzapine Tablet (Zyprexa Tablet) (12/10/24 19:00) Ondansetron Inj. (Zofran 4mg/2ml Vial) (12/10/24 19:05) Medications Received in ER Medications (Trade) Dose Ordered Sig/Jose Juan Route PRN Reason Start Time Stop Time Status Last Admin Dose Admin Sodium Chloride 1,000 ml @ 1,000 mls/hr ONCE ONCE IV 12/10/24 18:55 12/10/24 19:54 DC 12/10/24 19:11 1,000 MLS/HR (Zyprexa tablet) 10 mg ONCE ONCE PO 12/10/24 19:00 12/10/24 19:01 DC 12/10/24 19:18 10 MG (Zofran 4mg/2ml vial) 4 mg ONCE ONCE IV 12/10/24 19:05 12/10/24 19:06 DC 12/10/24 19:18 4 MG Sodium Chloride 1,000 ml @ 1,000 mls/hr ONCE ONCE IV 12/10/24 20:20 12/10/24 21:19 12/10/24 20:31 1,000 MLS/HR Vital Signs 12/10/24 12/10/24 12/10/24 18:40 18:54 19:12 Temp 97.7 97.7 Pulse 59 57 Resp 14 18 22 B/P (MAP) 85/51 104/74 (84) Pulse Ox 97 97 O2 Flow Rate 0 0 Laboratory Tests Test 12/10/24 18:40 12/10/24 18:55 Glucometer 102 White Blood Count 8.9 Red Blood Count 4.30 Hemoglobin 13.4 Hematocrit 40.1 Mean Corpuscular Volume 93.3 Mean Corpuscular Hemoglobin 31.2 H Mean Corpuscular Hemoglobin Concent 33.4 Red Cell Distribution Width 13.0 Platelet Count 231 Mean Platelet Volume 9.4 Neutrophils (%) (Auto) 56.4 Lymphocytes (%) (Auto) 34.1 Monocytes (%) (Auto) 7.3 Eosinophils (%) (Auto) 1.1 Basophils (%) (Auto) 1.1 H Neutrophils # (Auto) 5.0 Lymphocytes # (Auto) 3.0 Monocytes # (Auto) 0.7 Eosinophils # (Auto) 0.1 Basophils # (Auto) 0.1 CBC Comment Sodium Level 139 Potassium Level 3.5 Chloride Level 104 Carbon Dioxide Level 22.0 L Anion Gap 13 Blood Urea Nitrogen 19 H Creatinine 0.78 Estimated GFR/1.73 m2 80 BUN/Creatinine Ratio 24.4 H Glucose Level 104 Calcium Level 8.9 Troponin I High Sensitivity 5 Pro-B-Type Natriuretic Peptide 73 Albumin 3.9 Procalcitonin < 0.05 Chemistry Comments Ethyl Alcohol Level 130 H Medical Decision Making Findings Patient presents to the emergency room for evaluation regarding binge alcohol. While in the emergency room she had a syncopal episode after standing. She would not hit her head. Clinically she is dehydrated and blood pressures have responded after 2 L of IV fluids. Labs reassuring. Troponins negative as his EKG. He had not feel she is suffering from adverse cardiac event. Likely vagal from dehydration. I do not feel she is gravely disabled at this time or danger to anyone else or herself. I will refill her ADHD medication and she feels this is a good course of action. Departure Disposition: HOME / SELF CARE / HOMELESS Impression: Primary Impression: Alcoholic intoxication Additional Impression: Dehydration Condition: Improved Additional Instructions: Drink plenty of water. Return if things are working out. Referrals: NO PRIMARY CARE PROVIDER (PCP) Prescriptions Amphet Asp/Amphet/D-Amphet (Adderall 10 Mg Tablet) 10 Mg Tablet 1 TABLET PO DAILY, #14 TABLET Prov: ALTON JACOME MD 12/10/24 Education Educated: Patient Educated regarding: diagnosis, treatment, need for follow up Signature Scribe Signature: No scribe Attestation: The note accurately reflects work and decisions made by me.Alton Jacome MD 12/10/24 21:02 ALTON JACOME MD Dec 10, 2024 18:55
[2024-12-10] MEDS: normal saline 1000ml 1,000 ML IV ONE ×2 (19:11→20:31)
[2024-12-10] MEDS: ondansetron/PF 4mg/2ml inj IV ONE (19:18)
[2024-12-10 19:19] LABS: MEAN PLATELET VOLUME 9.4 FL (7.4-10.4); RED CELL DISTRIBUTION WIDTH 13.0 % (11.5-14.5)
--- NOTE | 2024-12-10 19:32 | RADIOLOGY REPORT ---
CHEST RADIOGRAPH Indication: CP Technique: Single frontal view of the chest was obtained Comparison: None FINDINGS: Lines and Tubes: None Lungs: No focal consolidation. Mild hyperinflation of the lungs. Pleura: No effusion. No pneumothorax. Cardiomediastinal contours: Unremarkable Bones: No acute osseous abnormality. IMPRESSION: No acute cardiopulmonary disease.
[2024-12-10 19:49] LABS: CREATININE 0.78 MG/DL (0.40-0.90); ETHANOL 130 MG/DL (<10); PRO BRAIN NATRIURETIC PEPTIDE 73 PG/ML (0-125); TOTAL CARBON DIOXIDE 22.0 MMOL/L (24-32); eCRCL 95 ML/MIN; eGFR 80 ML/MIN
[2024-12-10] MEDS ORDERED: AMPH10TA23 PO (21:02)
[2024-12-10] MEDS: midazolam 1 mg/ML 2ml injection IV ONE (21:12)
[2024-12-10 21:21] VITALS: BP 115/71; PULSE 72; RESP 12; TEMP 97.7; O2SAT 96
--- NOTE | 2024-12-11 06:00 | ELECTROCARDIOGRAPH REPORT ---
[facility] Test Date: 2024-12-10 Test Time: 18:38:55 Pat Name: SUMMER MARTÍNEZ Department: EMERGENCY ROOM Room: Gender: F At Home Independent Call Center Agent: : [id number] Requested By: NELIA KLINE Order Number: [id number] Reading MD: Dr. Abbe Schmid Measurements Intervals [place] Rate: 56 P: 54 [place]: 119 QRS: 37 QRSD: 95 T: 51 QT: 421 QTc: 407 Interpretive Statements Sinus bradycardia Borderline short [place] interval Probable left atrial enlargement ST elev, probable normal early repol pattern Electronically Signed On 12-11-2024 19:18:[address] Abbe Schmid Please click the below link to view image of tracing.
== END 2024-12-10 21:24 | disposition home or self-care (01) ==
LOC: ER 18:31
DX: F10.129 Alcohol abuse with intoxication, unspecified (principal); E86.0 Dehydration; F31.9 Bipolar disorder, unspecified; F41.9 Anxiety disorder, unspecified; F12.90 Cannabis use, unspecified, uncomplicated; Y90.9 Presence of alcohol in blood, level not specified; Z79.899 Other long term (current) drug therapy; Z56.0 Unemployment, unspecified; Y90.6 Blood alcohol level of 120-199 mg/100 ml
CPT/HCPCS: 36415; 71045; 80048; 80320; 82948; 83880; 84145; 84484; 85025; 93005; 96361; 96374; 96375; 99285; J2250; J2405; J7030